=== PATIENT | male | born 1970 | race Caucasian/White ===

== ENCOUNTER → 2017-06-11 09:24 | Outpatient (CLI) | payer OTHER, SELFPAY ==
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
--- NOTE | 2017-06-11 09:40 | MRI_ITS ---
STUDY: MRA OF THE HEAD WITHOUT CONTRAST REASON FOR EXAM: Male, 47 years old. lt frontal headache, h/o prior stroke, concussion. TECHNIQUE: 3-D tfjs-yj-oiuzft (TOF) imaging was performed with MIPs. The study was performed unenhanced. COMPARISON: None. FINDINGS: Normal bilateral petrous carotid arteries. Normal right cavernous carotid artery with a normal supraclinoid bifurcation. Normal left cavernous carotid artery with a normal supraclinoid bifurcation. Normal right A1 segments of the anterior cerebral artery. Normal left A1 segments of the anterior cerebral artery. Normal intact anterior communicating artery (ACOM). Normal bilateral A2 segments of the anterior cerebral arteries. Normal right M1 and M2 segments of the middle cerebral arteries, with a normal M1 bifurcation. Normal left M1 and M2 segments of the middle cerebral arteries, with a normal M1 bifurcation. Normal bilateral vertebral arteries. Normal basilar artery with a normal basilar bifurcation. The visualized bilateral superior cerebellar (SCA) arteries are normal. Normal bilateral P1, P2 and visualized P3 segments of the posterior cerebral arteries. There is no demonstrated aneurysm of the [place]. There is no major vessel occlusion or hemodynamically significant stenosis. There is no demonstrated abnormality of the visualized brain. MRI/MRA Head ONLY without Contrast IMPRESSION: Normal MRA of the head Electronically Signed: Marlyn Scruggs MD at 8:12 EST Tel , Service support ,
--- NOTE | 2017-06-11 09:40 | MRI_ITS ---
STUDY: MRA NECK WITH AND WITHOUT CONTRAST REASON FOR EXAM: Male, 47 years old. lt frontal headache, h/o prior stroke, concussion. TECHNIQUE: 3-D mzfi-uj-yjeryg (TOF) imaging was performed in an 1.5 T MRI scanner. 10 ml of Gadavist was administered for the contrast enhanced images. COMPARISON: None. FINDINGS: RIGHT CAROTID ARTERIES: Normal right common carotid artery (CCA). There is mild atherosclerotic plaque formation with minimal narrowing of the right carotid bulb. There is mild atherosclerotic plaque formation of the origin of the right internal carotid artery with less than 50% cross sectional diameter stenosis. Normal visualized cervical portion of the right internal carotid artery. Normal origin of the right external carotid artery (ECA). LEFT CAROTID ARTERIES: Normal left common carotid artery (CCA). There is moderate atherosclerotic plaque formation with moderate narrowing of the carotid bulb. There is moderate atherosclerotic plaque formation of the origin of the left internal carotid artery with an estimated stenosis of 50-69% stenosis. Normal visualized cervical portion of the left internal carotid artery. Normal origin of the left external carotid artery (ECA). VERTEBRAL ARTERIES: Normal antegrade flow within the bilateral vertebral artery without a hemodynamically significant stenosis. MRI/MRA Neck WITH and W/O Contrast IMPRESSION: 50-69% stenosis of the left ICA. Further evaluation with sonography can be obtained. Electronically Signed: Marlyn Scruggs MD at 9:27 EST Tel , Service support ,
== END ==
PROVIDERS: Family Provider Family Medicine; PCP Family Medicine; Visit Provider Psychiatry & Neurology Neurology
DX: R51 Headache (principal); Z86.73 Personal history of transient ischemic attack (TIA), and cerebral infarction without residual deficits
CPT/HCPCS: 70544; 70549; 70551; A9585

== ENCOUNTER → 2017-06-16 20:37 | Outpatient (CLI) | payer OTHER, SELFPAY | PROVIDERS: Family Provider Family Medicine; PCP Family Medicine; Visit Provider Psychiatry & Neurology Neurology | DX: G47.30 Sleep apnea, unspecified (principal); R06.83 Snoring; Z86.73 Personal history of transient ischemic attack (TIA), and cerebral infarction without residual deficits | CPT/HCPCS: 95810 ==

== ENCOUNTER → 2017-06-24 09:00 | Outpatient (CLI) | payer OTHER, SELFPAY ==
--- NOTE | 2017-06-24 09:06 | ECHOCS_ITS ---
Reason For Study: CVA, arrhythmia Procedure This was a 2D Doppler, Color Flow transthoracic echocardiogram. The exam was of fair technical quality due to body habitus. The study was technically difficult. Contrast injection was performed. Exam performed in department. Left Ventricle Normal LV size. Left ventricular systolic function is normal. The estimated ejection fraction is 60 %. No evidence for diastolic dysfunction. No regional wall motion abnormalities noted. Right Ventricle Normal RV size. Normal systolic function. Atria Normal left atrium. Normal right atrium. No doppler evidence for ASD. Bubble contrast study negative for right to left interatrial shunt. Mitral Valve There is no mitral annular calcification. Normal mitral valve. Trivial mitral valve insufficiency. Tricuspid Valve Normal tricuspid valve. Trivial tricuspid valve insufficiency. Right ventricular systolic pressure estimated to be 23 mmHg. Aortic Valve Trisinus/trileaflet aortic valve. Normal aortic valve. Pulmonic Valve The pulmonic valve is not well visualized. Great Vessels Normal sized aortic root. Pericardium/Pleural No pericardial effusion. Medication 22 gauge I.V. with prn adaptor inserted into right arm. Performed a rapid injection of agitated mix of 9 cc saline and 1cc air to assess for atrial septal defect. Definity0.3ml given slow IV push to enhance endocardial definition. MMode/2D Measurements & Calculations LVIDd: 5.2 cm IVSd: 0.98 cm Ao root diam: 3.0 cm LVIDs: 3.5 cm LVPWd: 1.0 cm LA dimension: 4.5 cm RVDd: 3.8 cm FS: 32.6 % LAV(MOD-bp): 52.6 ml LA A4 area: 18.9 cm2 RA A4 area: 16.4 cm2 LAV(MOD-bp) Indexed: 22.5 ml/m2 LAV(MOD-sp2): 54.6 ml LAV(MOD-sp4): 50.6 ml Time Measurements MV dec time: 0.23 sec Doppler Measurements & Calculations MV E max jozef: 86.0 cm/sec Lat Peak E' Jozef: 14.2 cm/sec Med Peak E' Jozef: 9.3 cm/sec MV A max jozef: 69.9 cm/sec E/E' lat: 6.1 E/E' med: 9.3 MV E/A: 1.2 Ao V2 max: 138.9 cm/sec LV V1 max: 116.2 cm/sec PA V2 max: 108.0 cm/sec Ao max P.7 mmHg LV V1 max P.4 mmHg TR max jozef: 223.0 cm/sec TR max P.9 mmHg Interpretation Summary The study was technically difficult. Contrast injection was performed. Left ventricular systolic function is normal. The estimated ejection fraction is 60 %. Trivial mitral valve insufficiency. Trivial tricuspid valve insufficiency. Right ventricular systolic pressure estimated to be 23 mmHg. No evidence for diastolic dysfunction. Bubble contrast study negative for right to left interatrial shunt. Ordering Physician: Shaun Esteves Referring Physician: Shaun Esteves Performed By: Coby Abel, JO, RVT
== END ==
PROVIDERS: Family Provider Family Medicine; PCP Family Medicine; Visit Provider Psychiatry & Neurology Neurology
DX: I49.9 Cardiac arrhythmia, unspecified (principal); G47.30 Sleep apnea, unspecified; R51 Headache; Z86.73 Personal history of transient ischemic attack (TIA), and cerebral infarction without residual deficits
CPT/HCPCS: 93306; Q9957; A4216; C8929

== ENCOUNTER → 2017-09-09 20:00 | Outpatient (CLI) | payer OTHER, SELFPAY | PROVIDERS: Family Provider Family Medicine; PCP Family Medicine; Visit Provider Psychiatry & Neurology Neurology | DX: G47.33 Obstructive sleep apnea (adult) (pediatric) (principal) | CPT/HCPCS: 95811 ==

== ENCOUNTER 2017-09-24 09:00 | Outpatient (RCR) | payer OTHER, SELFPAY ==
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
--- NOTE | 2017-06-09 09:41 | HP.PTREVAL_ITS ---
Dionicio Schaeffer, It has been my pleasure to treat ERASMO GLOVER over the last 7 visits for vertigo. Please see the progress note below for an update on the physical therapy plan of care! Subjective: Overall, car rides are still not comfortable and make him nauseous. No improvement over three weeks ago. Trying to tolerate sunlight but still wants to be in dark room again. Home is less stressful than going out. Fatigue later in day seems to not tolerate grandson as much. Still describes mild BELTRAN in L frontal area. Overall BELTRAN not as severe as three weeks ago. No spinning lately. A little lightheaded when he gets up. Will have MRI tomorrow and see Dr. Schaeffer after that. See neuro July 04. Objective/Function: Pt is slow to answer questions and often times seems confused with even simple questions but is oriented to person place and day. VOR is still slow and labored but not creating dizzyness today. C/S AROM is WFL adn painfree but seems to put him in a slight trance for a quick second upon looking back down, no nystagmus with positional changes or c/o dizzyness. Has been intermittently nauseous during his time in PT but not today with seated VOR in plain background room. OVERALL NOT PROGRESSING I WOULD EXPECT WITH A VESTIBULAR DYSFUNCTION. RECOMMEND HE F/U WITH DOCTOR(WHICH HE WILL DO ON FRIDAY AFTER MRI) HE IS NOT IMPROVING WITH PT. Plan Plan: F/U WITH DOCTOR FOR NEXT MEDICAL STEP, WOULD BE HAPPY TO KEEP SEEING HIM FOR SLOW PROGRESSION OF VOR AND OR ATTEMPTING TO EX IF FOUND APPRORIATE BY PHYSICAN HOWEVER PATIENT PRESENTS LACKING THE EXPECTED IMPROVEMENT FOR VESTIBUALR DYSFUNCTION. PLEASE ADVISE. Pt to call after doctor visit Friday. Goals Goal 1:: abolish dizzy and BELTRAN 95% Goal Time Frame: 4-6 Weeks Goal Progress: Not Progressing Goal 2:: Plan to return to work Goal Time Frame: 4-6 Weeks Goal Progress: Not Progressing Goal 3:: back to normal activity including walking in bright lights and busy [employer]. Goal Time Frame: 1 Week Goal Progress: Not Progressing Goal 4:: VOR x 2 1 minute without symptoms. Goal Time Frame: 2-4 Weeks Goal Progress: Not improving. Anticipated Interventions Patient/Client Instruction: Educate patient on: Condition For the Purpose of:: To decrease pain Comment: adaptation progression. activity progression. For the Purpose of:: To decrease pain, To improve ability of physical actions for home/community/work/leisure Please do not hesitate to contact me at [phone] by phone or Fax: if you have questions or concerns regarding this new plan of care! Sincerely, Neri Locke, DPT, OC
--- NOTE | 2017-09-09 12:05 | HP.PTREVAL ---
Dionicio Schaeffer, It has been my pleasure to treat ERASMO GLOVER over the last 8 visits for vertigo. Please see the progress note below for an update on the physical therapy plan of care! Subjective: Saw neurologist who said to take it easy for a while. Was drinking bourbon for stress and has stopped that. Doctor thinks he is now ready for more therapy. Feels 75% better overall. Back to [place] on 06 of August. Up to neurologist that week. Was 60% at that time with tests of memory. Nausea is rare now and only with long trips in car. No spinning but gets quick whoa incidence with lifting heavy object. BELTRAN still persist. Gets a 6+/10 BELTRAN without pattern(maybe sunlight). Gets these daily. They last an houror 10 minutes. Maybe stress related. Walking at stores is OK but hasn't been overly busy. Head movements he still shies away from. Stays activei in garage and at home. Still can't work at [employer] business. No regular ex. No precuations from neurologist. Objective/Function: - B hallpike. Balance is good. Oculomotor is difficult but only symprtomatic with VOR x 2 30 sec with pressure above eyes. Pursuit and sacc ades are labored but no symptoms. - skew deviation. convergence is Ok. Plan Plan: Resume weekly PT for adaptation porgression of HEP. Speech script may be helpful Goals Goal 1:: abolish dizzy and BELTRAN 95% Goal Time Frame: 4-6 Weeks Goal Progress: Progressing Goal 2:: Plan to return to work Goal Time Frame: 4-6 Weeks Goal Progress: approp again. Goal 3:: back to normal activity including walking in bright lights and busy [employer]. Goal Time Frame: 1 Week Goal Progress: approp again. Goal 4:: VOR x 2 1 minute without symptoms. Goal Time Frame: 2-4 Weeks Goal Progress: NEW GOAL. Anticipated Interventions Patient/Client Instruction: Educate patient on: Condition For the Purpose of:: To decrease pain Comment: adaptation progression. activity progression. For the Purpose of:: To decrease pain, To improve ability of physical actions for home/community/work/leisure Please do not hesitate to contact me at [phone] by phone or if you have questions or concerns regarding this new plan of care! Sincerely, Neri Locke, DPT, OC
--- NOTE | 2017-09-24 09:32 | HP.PTDCSUM ---
HP - PT D/C Summary It has been my pleasure to treat ERASMO GLOVER under orders from Dionicio Schaeffer, for the diagnosis of vertigo for a total of 9 visit(s). Discharge Date: 09/24/17 Please see the following information for a summary of their discharge status. - Subjective Subjective: Got cpap and it dried out throat. Dizzyness is gone. BELTRAN daily and they last for a while usually over L eye. Exercises do not make him dizzy or create a BELTRAN. Focussing on thinking hard can bring on a BELTRAN. Cognitive work can bring on BELTRAN. No neck pain. Will see Dr. Powers next Friday for check up. Saw Dr. Deana gaitan in August but no f/u needed according to patient. - Pain BELTRAN Pain Intensity (Out of 10): 1 - Overall Improvement % Improvement: 75 - Objective Objective/Function: asymptomatic with seated VOR, VORx2. No dizzyness with any activity today or BELTRAN. PT SIGNIFICANTLY BETTER WITH DIZZYNESS AND NAUSEA BUT beltran PERSISTS AND WILL CHECK WITH DOCTOR NEXT WEEK. - Goals Goal 1:: abolish dizzy and BELTRAN 95% Goal Progress: dizzy, not BELTRAN Goal 2:: Plan to return to work Goal Progress: needs BELTRAN attention. Goal 3:: back to normal activity including walking in bright lights and busy [employer]. Goal Progress: Goal Met Goal 4:: VOR x 2 1 minute without symptoms. Goal Progress: Goal Met - Plan Plan: D/C, back to doctor next week who should address BELTRAN and consider speech therapy prescritpion. - D/C Information Discharge Comments: Dizzyness and nausea no longer a problem. BELTRAN persists and my concern is the meds that his neurologist prescribed need monitored. Also could benefit from speech therapy script for cognition deficits. If there are questions or concerns regarding this patient's physical therapy, please feel free to call me at [phone]. Thank you for the referral of this patient. Sincerely, Neri Locke, DAMARIST, OC
== END 2017-09-24 19:00 | disposition home or self-care (01) ==
LOC: PT 09:00
PROVIDERS: Family Provider Family Medicine; PCP Family Medicine; Visit Provider Family Medicine
DX: S06.0X9D Concussion with loss of consciousness of unspecified duration, subsequent encounter (principal)
CPT/HCPCS: 97110; 97161; 97530

== ENCOUNTER → 2018-03-17 15:16 | Outpatient (CLI) | payer SELFPAY ==
[2018-03-17 18:08] LABS: Hematocrit 44.1 % (40-54); Mean Corpuscular Hgb 33.1 pg (27.0-32.0); Mean Corpuscular Volume 97.4 fL (80-94); Mean Platelet Vol. 11.8 fl (6.2-12.0); Platelet Count 212 K/mm3 (150-450); RBC Distribution Width CV 12.8 % (11.6-14.6); RBC Distribution Width SD 44.8 fl (35.1-43.9); Red Blood Count 4.53 M/mm3 (4.6-6.2); White Blood Count 7.1 K/mm3 (4.4-11.0)
[2018-03-17 18:09] LABS: Scan Indicated on CBC? Y/N NO
[2018-03-17 18:17] LABS: Erythrocyte Sedimentation Rate 6 mm/hr (0-15)
[2018-03-17 18:21] LABS: Vitamin B12 347 pg/mL (211-911); Vitamin D,25 Hydroxy 9.5 ng/mL (29.95-100.01)
[2018-03-17 18:22] LABS: ALB/GLOB Ratio 1.1 RATIO (0.9-2.4); AST(SGOT) 40 U/L (15-37); Alanine Aminotransfer ALT/SGPT 75 U/L (16-61); Albumin, Serum 3.9 g/dL (3.2-5.0); Alkaline Phosphatase 115 U/L (45-117); Anion Gap 11 (5-15); BUN 14 mg/dL (7-18); BUN/Creat Ratio 15.7 RATIO (10-20); Calcium,Total 8.4 mg/dL (8.5-10.1); Chloride 104 mmol/L (98-107); Cholesterol 194 mg/dL (200); Creatinine, Serum 0.89 mg/dL (0.70-1.30); EST Glomerular Filtration Rate 97 mL/min (>60); Est Glom Filt Rate - Afr Amer 117 mL/min (>60); Globulin 3.6 g/dL (2.2-4.2); Glucose 96 mg/dL (74-106); High Density Lipoprotein 29 mg/dL; Magnesium 1.6 mg/dL (1.6-2.6); Potassium 3.5 mmol/L (3.5-5.1); Protein, Total 7.5 g/dL (6.4-8.2); Sodium Level 136 mmol/L (136-145); Thyroid Stim Hormone (TSH) 3.61 uIU/mL (0.358-3.74); Triglycerides 719 mg/dL
== END ==
PROVIDERS: Family Provider Family Medicine; PCP Family Medicine; Visit Provider Family Medicine
DX: I10 Essential (primary) hypertension (principal); G62.9 Polyneuropathy, unspecified; F10.10 Alcohol abuse, uncomplicated
CPT/HCPCS: 36415; 80053; 80061; 82306; 82607; 83735; 84443; 85027; 85652

== ENCOUNTER → 2018-05-18 09:14 | Outpatient (CLI) | payer SELFPAY ==
[2018-05-18 10:32] LABS: Vitamin B12 356 pg/mL (211-911); Vitamin D,25 Hydroxy 46.4 ng/mL (29.95-100.01)
== END ==
PROVIDERS: Family Provider Family Medicine; PCP Family Medicine; Visit Provider Family Medicine
DX: E53.8 Deficiency of other specified B group vitamins (principal); R79.89 Other specified abnormal findings of blood chemistry
CPT/HCPCS: 36415; 82306; 82607

== ENCOUNTER 2018-08-02 12:25 | Emergency (ER) | payer OTHER, SELFPAY ==
[2018-08-02 12:26] VITALS: BP 141/84; PULSE 69; RESP 14; TEMP 36.6; O2SAT 99; BMI 34.3
--- NOTE | 2018-08-02 13:00 | RAD_ITS ---
STUDY: X-RAY - RIGHT ANKLE REASON FOR EXAM: Male, 48 years old. Fall, right ankle pain TECHNIQUE: 3 view(s) of the ankle. COMPARISON: None. FINDINGS: Normal visualized distal tibia and fibula. Normal medial and lateral malleoli. Normal tibiotalar articulation and ankle mortise. There is a small calcaneal spur. The visualized subtalar, talonavicular, calcaneocuboid and tarsal articulations are normal. The soft tissue structures are unremarkable. RAD/Ankle min 3 Views IMPRESSION: No fracture or malalignment. Electronically Signed: Cristian Kendrick MD at 13:22 EDT , Service support ,
--- NOTE | 2018-08-02 13:00 | RAD_ITS ---
STUDY: X-RAY - RIGHT KNEE REASON FOR EXAM: Male, 48 years old. Fall, pain TECHNIQUE: 4 view(s) of the knee. COMPARISON: None. FINDINGS: Normal visualized distal femur. Normal visualized proximal tibia and fibula. Normal proximal tibiofibular articulation. Normal medial femorotibial compartment. Normal lateral femorotibial compartment. Normal patellofemoral articulation. There is no demonstrated joint effusion. The soft tissue structures are unremarkable. RAD/Knee 4 or More Views IMPRESSION: 1. No fracture or malalignment. Electronically Signed: Cristian Kendrick MD at 13:22 EDT , Service support ,
--- NOTE | 2018-08-02 13:00 | RAD_ITS ---
STUDY: X-RAY - RIGHT TIBIA AND FIBULA REASON FOR EXAM: Male, 48 years old. Fall, pain TECHNIQUE: 3 view(s) of the tibia and fibula were obtained. COMPARISON: None. FINDINGS: There is medial bowing of the tibia is more likely sequela of prior injury or congenital variation rather than related to acute injury. Normal visualized fibula. The soft tissue structures are unremarkable. RAD/Tibia & Fibula 2 Views IMPRESSION: No fracture or malalignment demonstrated. Electronically Signed: Cristian Kendrick MD at 13:23 EDT , Service support ,
--- NOTE | 2018-08-02 13:41 | ED.VIS.LOWEX ---
History of Present Illness Chief Complaint: Lower Extremity Injury Informant: Patient Occurred: Days - 2 Mechanism/Context: Fall Context: Sudden Onset - slipped and fell Timing: Continuous Quality of Pain: Aching Current Severity: Mild Maximum Severity: Severe Relieved by: wearing orthopaedic boot Associated Symptoms: Negative for: Parasthesia, Weakness, Loss of Funtion Narrative: 2 days ago patient was in his sandals on a wooden patio and accidentally stepped in a puddle of water causing him to slipped, twisting his right ankle and knee, he describes what may have been a varus and internal rotation type of injury, he has been having lateral right ankle pain all the way up to the lateral aspect of his knee ever since. He has a tall orthopedic boot that he has been wearing since then, and presents today to have it evaluated. - Past Medical History (1) Benign essential HTN Status: Chronic (2) Gastroesophageal reflux disease Status: Chronic Past Medical History - Allergies and Home Meds Allergies/Adverse Reactions: Allergies Unable to Assess Allergy (Verified 08/02/18 12:28) Primary Care Physician: Layton Schaeffer MD [Primary Care Provider] - Surgical History: arhtroscopy at the age 15. Lives: Spouse/ Significant Other Smoking Status: Current every day smoker Review of Systems Musculoskeletal: Reports: Swelling - Right ankle, Extremity Pain. Denies: Neck pain, Back pain Neurological: Denies: Headache, Weakness, Numbness Physical Exam Vital Signs/Narrative: Vital Signs Temp Pulse Resp BP Pulse Ox 08/02/18 12:26 98 F 69 14 141/84 H 99 Inital Vital Signs reviewed: Yes - Extremity Exam Right Knee: - - Tender at lateral aspect of distal femur and knee joint and fibular head. All ligaments intact and stable with no significant pain or laxity on stressing including negative Linda. No effusion. Tender just lateral to the patella anteriorly.. Negative for: Deformity, Limited ROM Right Tib fib: - - Tender throughout the distribution of the fibula. No deformities.. Negative for: Deformity Right Ankle: Limited ROM, - - Tender and swollen at lateral malleolus. No tenderness at the medial malleolus, base of the fifth metatarsal, or elsewhere in the foot.. Negative for: Deformity General: Well nourished, Well developed Head: Normocephalic, Atraumatic Skin: Normal color, No rash, No Trauma - No skin lesions or lacerations Neurological: Alert, Oriented x3, Cranial nerves II-XII grossly intact, Normal Strength, Normal Sensation Psychological: Normal affect Diagnostic/Tx/Re-eval Clinical Impression(s) from Imaging Studies Ankle X-Ray 08/02/18 13:00 IMPRESSION: No fracture or malalignment. Electronically Signed: Cristian Kendrick MD at 13:22 EDT , Service support , Knee X-Ray 08/02/18 13:00 IMPRESSION: 1. No fracture or malalignment. Electronically Signed: Cristian Kendrick MD at 13:22 EDT , Service support , Tibia/Fibula X-Ray 08/02/18 13:00 IMPRESSION: No fracture or malalignment demonstrated. Electronically Signed: Cristian Kendrick MD at 13:23 EDT , Service support , - Medical Decision Making No x-ray evidence of bony injury or [place] injury. Likely sprain. Advised to follow-up with his doctor if he has pain persistent and not improving after 2 weeks. I think he is fine to continue using his tall boot, making sure to come out of it and flex his calf periodically. Ice and ibuprofen also advised as needed. He is comfortable with that plan. ED Disposition - Plan for ED Patient: Disposition: Home or Assisted Living Diagnosis: Sprain of ankle, right, Right knee sprain Instructions: ED Sprain Ankle W X Ray, ED Sprain Knee Referrals: Layton Schaeffer MD [Primary Care Provider] - 10-14 Days if not better Additional Instructions: May continue using boot and weightbearing as tolerated, ice to affected areas as needed, ibuprofen also as needed.
--- NOTE | 2018-08-02 13:49 | ED.DCSUM_ITS ---
History of Present Illness Chief Complaint: Lower Extremity Injury Informant: Patient Occurred: Days - 2 Mechanism/Context: Fall Context: Sudden Onset - slipped and fell Timing: Continuous Quality of Pain: Aching Current Severity: Mild Maximum Severity: Severe Relieved by: wearing orthopaedic boot Associated Symptoms: Negative for: Parasthesia, Weakness, Loss of Funtion Narrative: 2 days ago patient was in his sandals on a wooden patio and accidentally stepped in a puddle of water causing him to slipped, twisting his right ankle and knee, he describes what may have been a varus and internal rotation type of injury, he has been having lateral right ankle pain all the way up to the lateral aspect of his knee ever since. He has a tall orthopedic boot that he has been wearing since then, and presents today to have it evaluated. - Past Medical History (1) Benign essential HTN Status: Chronic (2) Gastroesophageal reflux disease Status: Chronic Past Medical History - Allergies and Home Meds Allergies/Adverse Reactions: Allergies Unable to Assess Allergy (Verified 08/02/18 12:28) Primary Care Physician: Layton Schaeffer MD [Primary Care Provider] - Surgical History: arhtroscopy at the age 15. Lives: Spouse/ Significant Other Smoking Status: Current every day smoker Review of Systems Musculoskeletal: Reports: Swelling - Right ankle, Extremity Pain. Denies: Neck pain, Back pain Neurological: Denies: Headache, Weakness, Numbness Physical Exam Vital Signs/Narrative: Vital Signs Temp Pulse Resp BP Pulse Ox 08/02/18 12:26 98 F 69 14 141/84 H 99 Inital Vital Signs reviewed: Yes - Extremity Exam Right Knee: - - Tender at lateral aspect of distal femur and knee joint and fibular head. All ligaments intact and stable with no significant pain or laxity on stressing including negative Linda. No effusion. Tender just lateral to the patella anteriorly.. Negative for: Deformity, Limited ROM Right Tib fib: - - Tender throughout the distribution of the fibula. No deformities.. Negative for: Deformity Right Ankle: Limited ROM, - - Tender and swollen at lateral malleolus. No tenderness at the medial malleolus, base of the fifth metatarsal, or elsewhere in the foot.. Negative for: Deformity General: Well nourished, Well developed Head: Normocephalic, Atraumatic Skin: Normal color, No rash, No Trauma - No skin lesions or lacerations Neurological: Alert, Oriented x3, Cranial nerves II-XII grossly intact, Normal Strength, Normal Sensation Psychological: Normal affect Diagnostic/Tx/Re-eval Clinical Impression(s) from Imaging Studies Ankle X-Ray 08/02/18 13:00 IMPRESSION: No fracture or malalignment. Electronically Signed: Cristian Kendrick MD at 13:22 EDT , Service support , Knee X-Ray 08/02/18 13:00 IMPRESSION: 1. No fracture or malalignment. Electronically Signed: Cristian Kendrick MD at 13:22 EDT , Service support , Tibia/Fibula X-Ray 08/02/18 13:00 IMPRESSION: No fracture or malalignment demonstrated. Electronically Signed: Cristian Kendrick MD at 13:23 EDT , Service support , - Medical Decision Making No x-ray evidence of bony injury or [place] injury. Likely sprain. Advised to follow-up with his doctor if he has pain persistent and not improving after 2 weeks. I think he is fine to continue using his tall boot, making sure to come out of it and flex his calf periodically. Ice and ibuprofen also advised as needed. He is comfortable with that plan. ED Disposition - Plan for ED Patient: Disposition: Home or Assisted Living Diagnosis: Sprain of ankle, right, Right knee sprain Instructions: ED Sprain Ankle W X Ray, ED Sprain Knee Referrals: Layton Schaeffer MD [Primary Care Provider] - 10-14 Days if not better Additional Instructions: May continue using boot and weightbearing as tolerated, ice to affected areas as needed, ibuprofen also as needed.
== END 2018-08-02 14:22 | disposition home or self-care (01) ==
PROVIDERS: Emergency Provider Emergency Medicine; Family Provider Family Medicine; PCP Family Medicine
DX: S93.401A Sprain of unspecified ligament of right ankle, initial encounter (principal); S83.91XA Sprain of unspecified site of right knee, initial encounter; W01.0XXA Fall on same level from slipping, tripping and stumbling without subsequent striking against object, initial encounter; Y93.9 Activity, unspecified; Y92.9 Unspecified place or not applicable; I10 Essential (primary) hypertension; F17.200 Nicotine dependence, unspecified, uncomplicated; Z79.82 Long term (current) use of aspirin; Z79.899 Other long term (current) drug therapy
CPT/HCPCS: 73564; 73590; 73610; 99282

== ENCOUNTER → 2019-03-02 08:19 | Outpatient (CLI) | payer SELFPAY ==
[2019-03-02 10:10] LABS: Hemoglobin 15.2 g/dL (13.0-16.5); Mean Corp Hgb Conc 34.5 g/dL (32-36); Mean Corpuscular Hgb 33.1 pg (27.0-32.0); Mean Corpuscular Volume 95.9 fL (80-94); Mean Platelet Vol. 12.5 fl (6.2-12.0); Platelet Count 211 K/mm3 (150-450); RBC Distribution Width CV 12.6 % (11.6-14.6); RBC Distribution Width SD 44.7 fl (35.1-43.9); Red Blood Count 4.59 M/mm3 (4.6-6.2); White Blood Count 7.1 K/mm3 (4.4-11.0)
[2019-03-02 10:28] LABS: Vitamin B12 482 pg/mL (211-911)
[2019-03-02 10:36] LABS: ALB/GLOB Ratio 1.1 RATIO (0.9-2.4); AST(SGOT) 50 U/L (15-37); Alanine Aminotransfer ALT/SGPT 90 U/L (16-61); Albumin, Serum 3.8 g/dL (3.2-5.0); Alkaline Phosphatase 101 U/L (45-117); Anion Gap 8 (5-15); BUN 16 mg/dL (7-18); BUN/Creat Ratio 18.6 RATIO (10-20); Calcium,Total 8.9 mg/dL (8.5-10.1); Chloride 108 mmol/L (98-107); Creatinine, Serum 0.86 mg/dL (0.70-1.30); EST Glomerular Filtration Rate 100 mL/min (>60); Est Glom Filt Rate - Afr Amer 121 mL/min (>60); Globulin 3.6 g/dL (2.2-4.2); Glucose 115 mg/dL (74-106); Potassium 3.8 mmol/L (3.5-5.1); Protein, Total 7.4 g/dL (6.4-8.2); Sodium Level 141 mmol/L (136-145); Thyroid Stim Hormone (TSH) 2.87 uIU/mL (0.358-3.74)
== END ==
PROVIDERS: Family Provider Family Medicine; PCP Family Medicine; Visit Provider Family Medicine
DX: E53.8 Deficiency of other specified B group vitamins (principal); F10.10 Alcohol abuse, uncomplicated; F32.9 Major depressive disorder, single episode, unspecified
CPT/HCPCS: 36415; 80053; 82607; 84443; 85027

== ENCOUNTER → 2019-12-17 09:23 | Outpatient (CLI) | payer OTHER, MEDICARE, SELFPAY ==
[2019-12-17 12:46] LABS: Erythrocyte Sedimentation Rate 8 mm/hr (0-20)
[2019-12-17 12:48] LABS: ALB/GLOB Ratio 1.1 RATIO (0.9-2.4); AST(SGOT) 18 U/L (15-37); Alanine Aminotransfer ALT/SGPT 72 U/L (16-61); Albumin, Serum 3.9 g/dL (3.2-5.0); Alkaline Phosphatase 110 U/L (45-117); Anion Gap 10 (5-15); BUN 12 mg/dL (7-18); BUN/Creat Ratio 13.1 RATIO (10-20); CRP < 2.90 mg/L (0.0-3.0); Calcium,Total 9.1 mg/dL (8.5-10.1); Chloride 102 mmol/L (98-107); Cholesterol 195 mg/dL (200); Creatinine, Serum 0.92 mg/dL (0.70-1.30); EST Glomerular Filtration Rate 93 mL/min (>60); Est Glom Filt Rate - Afr Amer 113 mL/min (>60); Globulin 3.6 g/dL (2.2-4.2); Glucose 249 mg/dL (74-106); High Density Lipoprotein 20 mg/dL; Potassium 3.9 mmol/L (3.5-5.1); Protein, Total 7.5 g/dL (6.4-8.2); Rheumatoid Factor < 10.0 IU/mL (<15); Sodium Level 136 mmol/L (136-145); Triglycerides 713 mg/dL
[2019-12-17 16:31] LABS: Hemoglobin A1c 8.2 % (3.8-5.6)
[2019-12-20 15:53] LABS: ANTINUCLEAR ANTIBODIES DIRECT Negative (Negative)
== END ==
PROVIDERS: Family Medicine; PCP Family Medicine; Referring Provider Family Medicine; Visit Provider Family Medicine
DX: R73.09 Other abnormal glucose (principal); E55.9 Vitamin D deficiency, unspecified; M25.50 Pain in unspecified joint; I10 Essential (primary) hypertension; E78.5 Hyperlipidemia, unspecified
CPT/HCPCS: 36415; 80053; 80061; 82306; 83036; 85652; 86038; 86140; 86431

== ENCOUNTER 2020-06-22 14:31 | Observation (INO) | payer OTHER, MEDICARE, SELFPAY ==
[2020-06-22 14:34] VITALS: BP 129/73; PULSE 91; RESP 16; TEMP 36.9; O2SAT 98; BMI 35.3
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
[2020-06-22 15:23] VITALS: BMI 35.3
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
[2020-06-22 15:33] VITALS: BP 136/81; PULSE 91; RESP 16; TEMP 36.7; O2SAT 99
[2020-06-22 15:37] VITALS: BP 136/81; PULSE 91; RESP 16; TEMP 36.7; O2SAT 99
--- NOTE | 2020-06-22 15:40 | CM.ED ---
SOCIAL WORK Reason for Consult: Substance abuse-requesting detox from alcohol Patient presents to [facility] ER requesting detox from alcohol. Patient states drank 4 shots before coming to ER. Patient reports consumes about 10-12 shots of bourbon/day. Patient states prior history of TBI and drinking has become a coping skill. Call to Kajal with [facility] to update on patient's admission to PAT. Kajal to be in tomorrow to complete assessment. Plan: Admit to PAT Sánchez, SOFTWARE TEST SPECIALIST, SOFTBALL PLAYER
[2020-06-22 15:49] LABS: Absolute Lymphocyte Count 3.12 X10^3/uL (0.83-4.51); Absolute Neutrophil Count 3.7 X10^3/uL (2.0-7.7); Basophil# 0.05 X10^3/uL; Basophil% 0.7 % (0-1); Eosinophil# 0.17 X10^3/uL; Eosinophils% 2.2 % (0-5); Hematocrit 40.2 % (40-54); Hemoglobin 14.1 g/dL (13.0-16.5); Lymphocyte # 3.12 X10^3/ul (4.0); Lymphocyte % 40.8 % (19-41); Mean Corp Hgb Conc 35.1 g/dL (32-36); Mean Corpuscular Hgb 32.9 pg (27.0-32.0); Mean Corpuscular Volume 93.7 fL (80-94); Mean Platelet Vol. 11.1 fl (6.2-12.0); Monocyte# 0.56 X10^3/uL; Monocyte% 7.3 % (0-10); NRBC Flagged by Analyzer 0 % (0-5); Neutrophil # 3.72 X10^3/uL (2.7-7.7); Neutrophil % 48.7 % (47-70); Platelet Count 281 K/mm3 (150-450); RBC Distribution Width CV 12.4 % (11.6-14.6); RBC Distribution Width SD 42.8 fl (35.1-43.9); Red Blood Count 4.29 M/mm3 (4.6-6.2); White Blood Count 7.6 K/mm3 (4.4-11.0)
[2020-06-22 16:00] LABS: ALB/GLOB Ratio 1.1 RATIO (0.9-2.4); AST(SGOT) 43 U/L (15-37); Alanine Aminotransfer ALT/SGPT 78 U/L (16-61); Albumin, Serum 3.9 g/dL (3.2-5.0); Alkaline Phosphatase 117 U/L (45-117); Anion Gap 9 (5-15); BUN 11 mg/dL (7-18); BUN/Creat Ratio 10.2 RATIO (10-20); Calcium,Total 8.8 mg/dL (8.5-10.1); Chloride 103 mmol/L (98-107); Creatinine, Serum 1.08 mg/dL (0.70-1.30); EST Glomerular Filtration Rate 77 mL/min (>60); Est Glom Filt Rate - Afr Amer 93 mL/min (>60); Estimated Creatinine Clearance 88.82 ml/min; Globulin 3.4 g/dL (2.2-4.2); Glucose 165 mg/dL (74-106); Potassium 3.1 mmol/L (3.5-5.1); Protein, Total 7.3 g/dL (6.4-8.2); Sodium Level 136 mmol/L (136-145)
[2020-06-22 16:11] VITALS: BMI 34.5
[2020-06-22 16:16] LABS: Amphetamine Urine VISTA NEGATIVE (<1000 ng/mL); Barbiturate Urine VISTA NEGATIVE (< 200 ng/mL); Benzodiazepine Urine VISTA NEGATIVE (< 200 ng/mL); Cocaine Urine VISTA NEGATIVE (< 300 ng/mL); Ecstacy Urine VISTA POSITIVE (< 500 ng/mL); Methadone Urine VISTA NEGATIVE (< 300 ng/mL); PCP Urine VISTA NEGATIVE (< 25 ng/mL); THC Urine VISTA NEGATIVE (< 50 ng/mL); Vista UDS pH Range 5
[2020-06-22 16:17] VITALS: BP 123/74; PULSE 92; RESP 16; TEMP 36.8; O2SAT 99
[2020-06-22 16:18] VITALS: BP 123/74; PULSE 92; RESP 16; TEMP 36.8; O2SAT 99
[2020-06-22] MEDS: Phenobarbital 32.4 MG Tablet PO ×2 (16:36→20:35)
[2020-06-22] MEDS: metFORMIN HCl 500 MG Tablet PO (16:58)
[2020-06-22] MEDS: Potassium Chloride Oral Tablet 20 MEQ 40 MEQ PO (16:58)
[2020-06-22 20:22] VITALS: BP 129/81; PULSE 82; RESP 16; TEMP 36.8; O2SAT 99
[2020-06-22] MEDS: Topiramate 50 MG Tablet PO (21:57)
[2020-06-22] MEDS: Pantoprazole Sodium 20 MG Tablet PO (21:57)
[2020-06-22] MEDS: Atorvastatin Calcium 40 MG Tablet PO (21:57)
[2020-06-22] MEDS: buPROPion (SR) 150 MG Tablet.SA PO (21:57)
[2020-06-22] MEDS: busPIRone 5 MG Tablet 10 MG PO (21:58)
[2020-06-23 01:01] VITALS: BP 143/96; PULSE 72; RESP 18; TEMP 36.6; O2SAT 96
[2020-06-23] MEDS: Phenobarbital 32.4 MG Tablet PO ×6 (01:06→20:42)
[2020-06-23 05:26] VITALS: BP 143/86; PULSE 87; RESP 18; TEMP 36.7; O2SAT 100
[2020-06-23] MEDS: busPIRone 5 MG Tablet 10 MG PO ×2 (05:34→20:42)
[2020-06-23] MEDS: Thiamine Hydrochloride 100 MG Tablet PO (09:08)
[2020-06-23] MEDS: buPROPion (SR) 150 MG Tablet.SA PO ×2 (09:08→20:43)
[2020-06-23] MEDS: amLODIPine 10 MG Tablet PO (09:08)
[2020-06-23] MEDS: metFORMIN HCl 500 MG Tablet PO ×2 (09:09→17:27)
[2020-06-23] MEDS: DULoxetine Hcl 60 MG Capsule PO (09:09)
[2020-06-23] MEDS: Pantoprazole Sodium 20 MG Tablet PO ×2 (09:09→20:43)
[2020-06-23] MEDS: hydroCHLOROthiazide 25 MG Tablet PO (09:10)
[2020-06-23] MEDS: Aspirin 81 MG TAB.CHEW PO (09:10)
[2020-06-23] MEDS: Losartan Potassium 100 MG Tablet PO (09:11)
[2020-06-23] MEDS: Folic Acid 1 MG Tablet PO (09:11)
[2020-06-23] MEDS: Topiramate 50 MG Tablet PO ×2 (09:14→20:43)
[2020-06-23 10:00] VITALS: BP 158/86; PULSE 76; RESP 18; TEMP 36.6; O2SAT 99
--- NOTE | 2020-06-23 10:54 | PCM.PN.HOSP ---
Patient Problems: Active and Suspected Problems Alcohol dependence (Acute) Subjective: Doing well, no issues overnight. Denies any significant withdrawal symptoms. JAIRO was a 4 this morning at 920 Vitals/I&O's: Vital Signs Temp Pulse Resp BP Pulse Ox 98 F 76 18 158/86 H 99 06/23/20 10:00 06/23/20 10:00 06/23/20 10:00 06/23/20 10:00 06/23/20 10:00 Oxygen Delivery Method Room Air Weight: 255 lb Body Mass Index (BMI) 34.5 Intake and Output for Last 24 Hours 06/21/20 06/22/20 06/23/20 23:59 23:59 23:59 Intake Total 650 / 650 700 / 700 Balance 650 / 650 700 / 700 General: Alert, Oriented x3, Cooperative, No apparent distress HEENT: Atraumatic, PERRLA, EOMI, Normocephalic Oral: Moist Mucosa Neck: Supple, No JVD Lungs: Clear to auscultation, Normal air movement, No rhonchi, No wheeze, No rales Cardiovascular: Regular rate, Regular Rhythm, Normal S1, Normal S2, No murmurs Abdomen: Soft, Non Tender, Non-Distended, No Hepato-splenomegaly Extremities: No edema, Capillary Refill Less than 3 Seconds Skin: No rashes, No breakdown Neurological: Neuro grossly intact, Sensory exam intact to light touch and pain Psych/Mental Status: Normal Affect, Appropriate Laboratory Results 06/22/20 15:20: WBC 7.6, RBC 4.29 L, Hgb 14.1, Hct 40.2, MCV 93.7, MCH 32.9 H, MCHC 35.1, RDW Std Deviation 42.8, RDW Coeff of Filippo 12.4, Plt Count 281, MPV 11.1, Immature Gran % (Auto) 0.300, Neut % (Auto) 48.7, Lymph % (Auto) 40.8, [place] % (Auto) 7.3, Eos % (Auto) 2.2, Baso % (Auto) 0.7, Absolute Neuts (auto) 3.7, Absolute Lymphs (auto) 3.12, Nucleated RBC % 0 06/22/20 15:20: Sodium 136, Potassium 3.1 L, Chloride 103, Carbon Dioxide 24.0, Anion Gap 9, BUN 11, Creatinine 1.08, Estim Creat Clear Calc 88.82, Est GFR (MDRD) Af Amer 93, Est GFR (MDRD) Non-Af 77, BUN/Creatinine Ratio 10.2, Glucose 165 H, Calcium 8.8, Total Bilirubin 0.20, AST 43 H, ALT 78 H, Alkaline Phosphatase 117, Total Protein 7.3, Albumin 3.9, Globulin 3.4, Albumin/Globulin Ratio 1.1 06/22/20 15:20: Ethyl Alcohol 110.0 06/22/20 15:50: Urine Opiates Screen NEGATIVE, Urine Methadone Screen NEGATIVE, Ur Barbiturates Screen NEGATIVE, Ur Phencyclidine Scrn NEGATIVE, Ur Amphetamines Screen NEGATIVE, U Methamphetamin-MDMA POSITIVE H, U Benzodiazepines Scrn NEGATIVE, Urine Cocaine Screen NEGATIVE, U Cannabinoids Screen NEGATIVE, Ur Drug Screen Comment Current Medications Amlodipine Besylate (Amlodipine 10 Mg Tablet) 10 mg PO DAILY [facility] Last Admin: 06/23/20 09:08 Dose: 10 mg Documented by: Aspirin (Aspirin 81 Mg Tab.Chew) 81 mg PO DAILY@0800 [facility] Last Admin: 06/23/20 09:10 Dose: 81 mg Documented by: Atorvastatin Calcium (Atorvastatin Calcium 40 Mg Tablet) 40 mg PO QHS [facility] Last Admin: 06/22/20 21:57 Dose: 40 mg Documented by: Bupropion HCl (Bupropion (Sr) 150 Mg Tablet.Sa) 150 mg PO BID [facility] Last Admin: 06/23/20 09:08 Dose: 150 mg Documented by: Buspirone HCl (Buspirone 15 Mg Tablet) 30 mg PO DAILY [facility] Buspirone HCl (Buspirone 5 Mg Tablet) 10 mg PO TID [facility] Last Admin: 06/23/20 05:34 Dose: 10 mg Documented by: Dicyclomine HCl (Dicyclomine 10 Mg Capsule) 20 mg PO Q6H PRN PRN PRN Reason: abdominal discomfort Duloxetine HCl (Duloxetine Hcl 60 Mg Capsule) 60 mg PO DAILY [facility] Last Admin: 06/23/20 09:09 Dose: 60 mg Documented by: Folic Acid (Folic Acid 1 Mg Tablet) 1 mg PO DAILY@0800 [facility] Last Admin: 06/23/20 09:11 Dose: 1 mg Documented by: Gabapentin (Gabapentin 300 Mg Capsule) 300 mg PO Q8H PRN PRN PRN Reason: moderate to severe anxiety Hydrochlorothiazide (Hydrochlorothiazide 25 Mg Tablet) 25 mg PO DAILY [facility] Last Admin: 06/23/20 09:10 Dose: 25 mg Documented by: Hydroxyzine Pamoate (Hydroxyzine Jessa 25 Mg Capsule) 50 mg PO Q4H PRN PRN PRN Reason: mild anxiety Loperamide HCl (Loperamide 2 Mg Capsule) 2 mg PO Q4H PRN PRN PRN Reason: LOOSE STOOLS Lorazepam (Lorazepam 1 Mg Tablet) 1 mg PO BID PRN PRN Reason: ANXIETY Losartan Potassium (Losartan Potassium 100 Mg Tablet) 100 mg PO DAILY [facility] Last Admin: 06/23/20 09:11 Dose: 100 mg Documented by: Metformin HCl (Metformin Hcl 500 Mg Tablet) [facility] Last Admin: 06/23/20 09:09 Dose: 500 mg Documented by: Nicotine (Nicotine 21 Mg Patch) 21 mg TD DAILY [facility] Last Admin: 06/23/20 09:12 Dose: 21 mg Documented by: Ondansetron HCl (Ondansetron 8 Mg Tablet) 8 mg PO Q8H PRN PRN PRN Reason: NAUSEA Pantoprazole Sodium (Pantoprazole Sodium 20 Mg Tablet) 20 mg PO BID [facility] Last Admin: 06/23/20 09:09 Dose: 20 mg Documented by: Phenobarbital (Phenobarbital 32.4 Mg Tablet) 97.2 mg PO Q4H [facility]; Taper Stop: 06/27/20 00:59 Last Admin: 06/23/20 08:55 Dose: 97.2 mg Documented by: Sodium Chloride (0.9% Saline Lock 10 Ml Syringe) 10 - 40 ml IV UD PRN PRN Reason: SALINE FLUSH Thiamine HCl (Thiamine Hydrochloride 100 Mg Tablet) [facility] Last Admin: 06/23/20 09:08 Dose: 100 mg Documented by: Topiramate (Topiramate 50 Mg Tablet) 50 mg PO BID [facility] Last Admin: 06/23/20 09:14 Dose: 50 mg Documented by: Trazodone HCl (Trazodone 100 Mg Tablet) 100 mg PO QHS PRN PRN PRN Reason: INSOMNIA STROKE Vital Signs/Narrative: Vital Signs Temp Pulse Resp BP Pulse Ox 06/23/20 10:00 98 F 76 18 158/86 H 99 Medical Necessity - Tobacco Use Smoking Status: Current every day smoker Tobacco Use: Secondhand, Cigarettes Assessment/Plan All Active Problems Alcohol dependence (Acute) 1. Alcohol detox/anxiety/depression/history of TBI -We will continue with the alcohol withdrawal protocol -Continue with Wellbutrin, BuSpar, Cymbalta, Topamax -Understands that he will talk with 180 and may need either inpatient rehab or outpatient management. 2. HTN/HLD -Blood pressures are currently stable -Continue with his home Norvasc, aspirin, hydrochlorothiazide, losartan 3. DM 2 -Stable -Continue with his home metformin 4. GERD -Stable -Continue with PPI DVT: Low risk Inpatient E&M: 18395 Subs Hosp L2
--- NOTE | 2020-06-23 12:44 | ADDICTION ---
This racebook writer met with PT in his room to complete ASAM, AUDIT and MSE assessments and to process d/c plan. D/c plan not completed due to PT being encouraged to review his options as this is his first time seeking treatment. Assessments completed and faxed to [facility].
[2020-06-23 13:18] VITALS: BP 136/88; PULSE 79; RESP 18; TEMP 36.5; O2SAT 96
--- NOTE | 2020-06-23 14:31 | CASEMGMT ---
Social Work Note SW received call from Nicol with [facility] requesting pt remain at [facility] until Friday when pt can discharge directly to [facility] and Nicol can meet with pt and pt's together to figure out discharge plans. Nicol requests pt be discharged by 10:30-11:00am so she can transport pt to [facility]. Physician updated. Plan: [facility] Friday Aiyana PENALOZA, CAREER DEVELOPMENT FACILITATOR
--- NOTE | 2020-06-23 16:54 | NURSING ---
reviewed and agree with documentation by DERECK Barcenas
[2020-06-23 17:22] VITALS: BP 123/80; PULSE 74; RESP 18; TEMP 36.9; O2SAT 99
[2020-06-23] MEDS: 0.9% Saline Lock 10 ML Syringe IV (17:27)
[2020-06-23] MEDS: Atorvastatin Calcium 40 MG Tablet PO (20:43)
[2020-06-23 20:47] VITALS: BP 126/81; PULSE 69; RESP 16; TEMP 36.6; O2SAT 95
[2020-06-24] MEDS: Phenobarbital 32.4 MG Tablet PO ×6 (00:57→21:59)
[2020-06-24 01:57] VITALS: BP 123/73; PULSE 61; RESP 16; TEMP 36.1; O2SAT 97
[2020-06-24 07:57] VITALS: BP 130/84; PULSE 58; RESP 18; TEMP 37.1; O2SAT 98
--- NOTE | 2020-06-24 08:17 | PN_ITS ---
Patient Problems: Active and Suspected Problems Alcohol dependence (Acute) Reason for Visit: Follow-up on acute alcohol withdrawal. Subjective: Patient was seen and examined. Denied any new complaints. Feels improved. Objective: Physical exam: General: Alert, Oriented x3, Cooperative, No apparent distress HEENT: Atraumatic, PERRLA, EOMI, Normocephalic Oral: Moist Mucosa Neck: Supple, No JVD Lungs: Clear to auscultation, Normal air movement, No rhonchi, No wheeze, No rales Cardiovascular: Regular rate, Regular Rhythm, Normal S1, Normal S2, No murmurs Abdomen: Soft, Non Tender, Non-Distended, No Hepato-splenomegaly Extremities: No edema, Capillary Refill Less than 3 Seconds Skin: No rashes, No breakdown Neurological: Neuro grossly intact, Sensory exam intact to light touch and pain Psych/Mental Status: Normal Affect, Appropriate Vitals/I&O's: Vital Signs Temp Pulse Resp BP Pulse Ox 97 F L 61 16 123/73 H 97 06/24/20 01:57 06/24/20 01:57 06/24/20 01:57 06/24/20 01:57 06/24/20 01:57 Oxygen Delivery Method Room Air Weight: 115.666 kg Body Mass Index (BMI) 34.5 Intake and Output for Last 24 Hours 06/22/20 06/23/20 06/24/20 23:59 23:59 23:59 Intake Total 650 / 650 1999 Balance 650 / 650 1999 Current Medications Amlodipine Besylate (Amlodipine 10 Mg Tablet) 10 mg PO DAILY [facility] Last Admin: 06/23/20 09:08 Dose: 10 mg Documented by: Aspirin (Aspirin 81 Mg Tab.Chew) 81 mg PO DAILY@0800 [facility] Last Admin: 06/23/20 09:10 Dose: 81 mg Documented by: Atorvastatin Calcium (Atorvastatin Calcium 40 Mg Tablet) 40 mg PO QHS [facility] Last Admin: 06/23/20 20:43 Dose: 40 mg Documented by: Bupropion HCl (Bupropion (Sr) 150 Mg Tablet.Sa) 150 mg PO BID [facility] Last Admin: 06/23/20 20:43 Dose: 150 mg Documented by: Buspirone HCl (Buspirone 5 Mg Tablet) 10 mg PO QHS [facility] Last Admin: 06/23/20 20:42 Dose: 10 mg Documented by: Buspirone HCl (Buspirone 5 Mg Tablet) 20 mg PO DAILY [facility] Dicyclomine HCl (Dicyclomine 10 Mg Capsule) 20 mg PO Q6H PRN PRN PRN Reason: abdominal discomfort Duloxetine HCl (Duloxetine Hcl 60 Mg Capsule) 60 mg PO DAILY [facility] Last Admin: 06/23/20 09:09 Dose: 60 mg Documented by: Folic Acid (Folic Acid 1 Mg Tablet) 1 mg PO DAILY@0800 [facility] Last Admin: 06/23/20 09:11 Dose: 1 mg Documented by: Gabapentin (Gabapentin 300 Mg Capsule) 300 mg PO Q8H PRN PRN PRN Reason: moderate to severe anxiety Hydrochlorothiazide (Hydrochlorothiazide 25 Mg Tablet) 25 mg PO DAILY [facility] Last Admin: 06/23/20 09:10 Dose: 25 mg Documented by: Hydroxyzine Pamoate (Hydroxyzine Jessa 25 Mg Capsule) 50 mg PO Q4H PRN PRN PRN Reason: mild anxiety Loperamide HCl (Loperamide 2 Mg Capsule) 2 mg PO Q4H PRN PRN PRN Reason: LOOSE STOOLS Lorazepam (Lorazepam 1 Mg Tablet) 1 mg PO BID PRN PRN Reason: ANXIETY Losartan Potassium (Losartan Potassium 100 Mg Tablet) 100 mg PO DAILY [facility] Last Admin: 06/23/20 09:11 Dose: 100 mg Documented by: Metformin HCl (Metformin Hcl 500 Mg Tablet) [facility] Last Admin: 06/23/20 17:27 Dose: 500 mg Documented by: Nicotine (Nicotine 21 Mg Patch) 21 mg TD DAILY [facility] Last Admin: 06/23/20 09:12 Dose: 21 mg Documented by: Ondansetron HCl (Ondansetron 8 Mg Tablet) 8 mg PO Q8H PRN PRN PRN Reason: NAUSEA Pantoprazole Sodium (Pantoprazole Sodium 20 Mg Tablet) 20 mg PO BID [facility] Last Admin: 06/23/20 20:43 Dose: 20 mg Documented by: Phenobarbital (Phenobarbital 32.4 Mg Tablet) 64.8 mg PO Q4H [facility]; Taper Stop: 06/27/20 00:59 Last Admin: 06/24/20 05:05 Dose: 64.8 mg Documented by: Sodium Chloride (0.9% Saline Lock 10 Ml Syringe) 10 - 40 ml IV UD PRN PRN Reason: SALINE FLUSH Last Admin: 06/23/20 17:27 Dose: 10 ml Documented by: Thiamine HCl (Thiamine Hydrochloride 100 Mg Tablet) 100 mg PO DAILYCM [facility] Last Admin: 06/23/20 09:08 Dose: 100 mg Documented by: Topiramate (Topiramate 50 Mg Tablet) 50 mg PO BID [facility] Last Admin: 06/23/20 20:43 Dose: 50 mg Documented by: Trazodone HCl (Trazodone 100 Mg Tablet) 100 mg PO QHS PRN PRN PRN Reason: INSOMNIA Medical Necessity - Tobacco Use Smoking Status: Current every day smoker Tobacco Use: Secondhand, Cigarettes Assessment/Plan All Active Problems Alcohol dependence (Acute) 1. Acute alcohol withdrawal, improving, continue on the phenobarbital withdrawal protocol 2. Hypokalemia/hypomagnesemia, K 3.1, replaced, recheck in am 3. Hypertension, fairly controlled, continue on amlodipine, hydrochlorothiazide, Losartan 4. Hyperlipidemia, continue on statin 5. Bipolar disorder, continue on Buspar/Wellbutrin/Topiramate/Lorazepam/Cymbalta 6. DVT PPx- low risk with early ambulation Inpatient E&M: 62902 Subs Hosp L2
[2020-06-24] MEDS: Thiamine Hydrochloride 100 MG Tablet PO (08:29)
[2020-06-24] MEDS: Aspirin 81 MG TAB.CHEW PO (08:29)
[2020-06-24] MEDS: Folic Acid 1 MG Tablet PO (08:29)
[2020-06-24] MEDS: metFORMIN HCl 500 MG Tablet PO ×2 (08:29→17:06)
--- NOTE | 2020-06-24 09:15 | PCA ---
Addendum entered by Pretty Perez 06/24/20 19:39: Araceli from [facility] has called to the unit and has been conversing with Daily, Araceli states that pt has been accepted to the facility [facility] for their alcohol withdrawal program. Araceli is going to contact the and let her be aware of this also. Araceli stated that she cannot promise that they will have a bed on friday when patient is due to be discharged. We can call [facility] and ask if there is an available bed for him as he is on their priority list. Call [phone] and ask for admissions office. Original Note: Pt Daily called this am and voiced concerns of pt alcohol consumption. Strongly wants pt to go to inpatient rehab. Voiced to that we cannot force him to go to a facility, that the patient has to be willing. Daily understands. Daily states that her insurance covers 28 days at [facility] facility located in [place], [place]. states pt drinks liter amounts of bourbon daily and that pt has a serious problem. Pt has been drinking since he was 13. Daily would like to talk one on one Friday morning with [facility] , before pt is discharged with 180 and meets with .
[2020-06-24] MEDS: Pantoprazole Sodium 20 MG Tablet PO ×2 (09:36→21:59)
[2020-06-24] MEDS: DULoxetine Hcl 60 MG Capsule PO (09:36)
[2020-06-24] MEDS: busPIRone 5 MG Tablet 20 MG PO (09:36)
[2020-06-24] MEDS: hydroCHLOROthiazide 25 MG Tablet PO (09:37)
[2020-06-24] MEDS: amLODIPine 10 MG Tablet PO (09:37)
[2020-06-24] MEDS: Losartan Potassium 100 MG Tablet PO (09:37)
[2020-06-24] MEDS: Topiramate 50 MG Tablet PO ×2 (09:38→22:02)
[2020-06-24] MEDS: buPROPion (SR) 150 MG Tablet.SA PO ×2 (09:38→22:02)
[2020-06-24 09:39] LABS: AST(SGOT) 47 U/L (15-37); Alanine Aminotransfer ALT/SGPT 82 U/L (16-61); Albumin, Serum 3.7 g/dL (3.2-5.0); Alkaline Phosphatase 113 U/L (45-117); Anion Gap 8 (5-15); BUN 14 mg/dL (7-18); BUN/Creat Ratio 15.1 RATIO (10-20); Calcium,Total 9.4 mg/dL (8.5-10.1); Chloride 101 mmol/L (98-107); Creatinine, Serum 0.93 mg/dL (0.70-1.30); EST Glomerular Filtration Rate 91 mL/min (>60); Est Glom Filt Rate - Afr Amer 110 mL/min (>60); Estimated Creatinine Clearance 103.14 ml/min; Globulin 3.7 g/dL (2.2-4.2); Glucose 192 mg/dL (74-106); Magnesium 1.7 mg/dL (1.6-2.6); Protein, Total 7.4 g/dL (6.4-8.2); Sodium Level 135 mmol/L (136-145)
[2020-06-24 11:00] VITALS: BP 140/74; PULSE 60; RESP 18; TEMP 37; O2SAT 98
[2020-06-24 17:00] VITALS: BP 125/79; PULSE 71; RESP 18; TEMP 36.6; O2SAT 98
[2020-06-24 19:48] VITALS: BP 136/78; PULSE 65; RESP 16; TEMP 36.5; O2SAT 97
[2020-06-24] MEDS: Atorvastatin Calcium 40 MG Tablet PO (21:59)
[2020-06-24] MEDS: busPIRone 5 MG Tablet 10 MG PO (22:00)
[2020-06-24] MEDS: Insulin Lispro 100 UNIT/ML INSULN.PEN SC (22:08)
[2020-06-24 22:11] LABS: Bedside Glucose 234 mg/dL (70-110)
[2020-06-25] MEDS: Phenobarbital 32.4 MG Tablet PO ×4 (01:54→18:26)
[2020-06-25 01:55] VITALS: BP 130/73; PULSE 69; RESP 16; TEMP 36.4; O2SAT 97
[2020-06-25] MEDS: Insulin Lispro 100 UNIT/ML INSULN.PEN SC ×4 (06:26→21:20)
[2020-06-25 06:35] LABS: Bedside Glucose 182 mg/dL (70-110)
[2020-06-25 07:00] VITALS: BP 122/77; PULSE 77; RESP 18; TEMP 36.3; O2SAT 98
[2020-06-25 07:27] LABS: ALB/GLOB Ratio 1.1 RATIO (0.9-2.4); AST(SGOT) 40 U/L (15-37); Alanine Aminotransfer ALT/SGPT 77 U/L (16-61); Albumin, Serum 3.7 g/dL (3.2-5.0); Alkaline Phosphatase 111 U/L (45-117); Anion Gap 8 (5-15); BUN 13 mg/dL (7-18); BUN/Creat Ratio 14.6 RATIO (10-20); Calcium,Total 8.8 mg/dL (8.5-10.1); Chloride 102 mmol/L (98-107); Creatinine, Serum 0.89 mg/dL (0.70-1.30); EST Glomerular Filtration Rate 95 mL/min (>60); Est Glom Filt Rate - Afr Amer 115 mL/min (>60); Estimated Creatinine Clearance 107.78 ml/min; Globulin 3.4 g/dL (2.2-4.2); Glucose 148 mg/dL (74-106); Magnesium 1.7 mg/dL (1.6-2.6); Potassium 3.8 mmol/L (3.5-5.1); Protein, Total 7.1 g/dL (6.4-8.2); Sodium Level 137 mmol/L (136-145)
[2020-06-25] MEDS: Folic Acid 1 MG Tablet PO (07:34)
[2020-06-25] MEDS: Thiamine Hydrochloride 100 MG Tablet PO (07:34)
[2020-06-25] MEDS: Aspirin 81 MG TAB.CHEW PO (07:35)
[2020-06-25] MEDS: metFORMIN HCl 500 MG Tablet PO ×2 (07:35→17:02)
[2020-06-25 07:57] VITALS: BP 122/77; PULSE 77; RESP 16; TEMP 36.3; O2SAT 100
[2020-06-25] MEDS: busPIRone 5 MG Tablet 20 MG PO (09:43)
[2020-06-25] MEDS: Pantoprazole Sodium 20 MG Tablet PO ×2 (09:43→21:17)
[2020-06-25] MEDS: hydroCHLOROthiazide 25 MG Tablet PO ×2 (09:43)
[2020-06-25] MEDS: DULoxetine Hcl 60 MG Capsule PO (09:44)
[2020-06-25] MEDS: Losartan Potassium 100 MG Tablet PO (09:44)
[2020-06-25] MEDS: amLODIPine 10 MG Tablet PO (09:44)
[2020-06-25] MEDS: Topiramate 50 MG Tablet PO ×2 (09:45→21:17)
[2020-06-25] MEDS: buPROPion (SR) 150 MG Tablet.SA PO ×2 (09:45→21:19)
--- NOTE | 2020-06-25 10:45 | PN_ITS ---
Patient Problems: Active and Suspected Problems Alcohol dependence (Acute) Reason for Visit: Follow-up on acute alcohol withdrawal. Subjective: Patient was seen and examined. Denied any new complaints. Feels improved. Objective: Physical exam: General: Alert, Oriented x3, Cooperative, No apparent distress HEENT: Atraumatic, PERRLA, EOMI, Normocephalic Oral: Moist Mucosa Neck: Supple, No JVD Lungs: Clear to auscultation, Normal air movement, No rhonchi, No wheeze, No rales Cardiovascular: Regular rate, Regular Rhythm, Normal S1, Normal S2, No murmurs Abdomen: Soft, Non Tender, Non-Distended, No Hepato-splenomegaly Extremities: No edema, Capillary Refill Less than 3 Seconds Skin: No rashes, No breakdown Neurological: Neuro grossly intact, Sensory exam intact to light touch and pain Psych/Mental Status: Normal Affect, Appropriate Vitals/I&O's: Vital Signs Temp Pulse Resp BP Pulse Ox 97.3 F L 77 16 122/77 H 100 06/25/20 07:57 06/25/20 07:57 06/25/20 07:57 06/25/20 07:57 06/25/20 07:57 Oxygen Delivery Method Room Air Weight: 115.666 kg Body Mass Index (BMI) 34.5 Intake and Output for Last 24 Hours 06/23/20 06/24/20 06/25/20 23:59 23:59 23:59 Intake Total 1999 1804 / 1804 Balance 1999 1804 / 1804 Laboratory Results 06/24/20 22:05: POC Glucose 234 H 06/25/20 06:13: Sodium 137, Potassium 3.8, Chloride 102, Carbon Dioxide 27.0, Anion Gap 8, BUN 13, Creatinine 0.89, Estim Creat Clear Calc 107.78, Est GFR (MDRD) Af Amer 115, Est GFR (MDRD) Non-Af 95, BUN/Creatinine Ratio 14.6, Glucose 148 H, Calcium 8.8, Magnesium 1.7, Total Bilirubin 0.30, AST 40 H, ALT 77 H, Alkaline Phosphatase 111, Total Protein 7.1, Albumin 3.7, Globulin 3.4, Albumin/Globulin Ratio 1.1 06/25/20 06:24: POC Glucose 182 H Current Medications Amlodipine Besylate (Amlodipine 10 Mg Tablet) 10 mg PO DAILY [facility] Last Admin: 06/25/20 09:44 Dose: 10 mg Documented by: Aspirin (Aspirin 81 Mg Tab.Chew) 81 mg PO DAILY@0800 [facility] Last Admin: 06/25/20 07:35 Dose: 81 mg Documented by: Atorvastatin Calcium (Atorvastatin Calcium 40 Mg Tablet) 40 mg PO QHS [facility] Last Admin: 06/24/20 21:59 Dose: 40 mg Documented by: Bupropion HCl (Bupropion (Sr) 150 Mg Tablet.Sa) 150 mg PO BID [facility] Last Admin: 06/25/20 09:45 Dose: 150 mg Documented by: Buspirone HCl (Buspirone 5 Mg Tablet) 10 mg PO QHS [facility] Last Admin: 06/24/20 22:00 Dose: 10 mg Documented by: Buspirone HCl (Buspirone 5 Mg Tablet) 20 mg PO DAILY [facility] Last Admin: 06/25/20 09:43 Dose: 20 mg Documented by: Dextrose (Dextrose 50%-Water 25 Gm/50 Ml Disp.Syrin) 0 gm IV X1 PRN; Protocol PRN Reason: Hypoglycemia Dicyclomine HCl (Dicyclomine 10 Mg Capsule) 20 mg PO Q6H PRN PRN PRN Reason: abdominal discomfort Duloxetine HCl (Duloxetine Hcl 60 Mg Capsule) 60 mg PO DAILY [facility] Last Admin: 06/25/20 09:44 Dose: 60 mg Documented by: Folic Acid (Folic Acid 1 Mg Tablet) 1 mg PO DAILY@0800 [facility] Last Admin: 06/25/20 07:34 Dose: 1 mg Documented by: Gabapentin (Gabapentin 300 Mg Capsule) 300 mg PO Q8H PRN PRN PRN Reason: moderate to severe anxiety Glucagon (Glucagon 1 Mg/Ml Syringe) 1 mg IM .X1 PRN PRN Reason: Hypoglycemia Hydrochlorothiazide (Hydrochlorothiazide 25 Mg Tablet) 25 mg PO DAILY [facility] Last Admin: 06/25/20 09:43 Dose: 25 mg Documented by: Hydroxyzine Pamoate (Hydroxyzine Jessa 25 Mg Capsule) 50 mg PO Q4H PRN PRN PRN Reason: mild anxiety Insulin Human Lispro (Insulin Lispro 100 Unit/Ml Insuln.Pen) 0 unit SC [facility]; Protocol Last Admin: 06/25/20 06:26 Dose: 1 u Documented by: Loperamide HCl (Loperamide 2 Mg Capsule) 2 mg PO Q4H PRN PRN PRN Reason: LOOSE STOOLS Lorazepam (Lorazepam 1 Mg Tablet) 1 mg PO BID PRN PRN Reason: ANXIETY Losartan Potassium (Losartan Potassium 100 Mg Tablet) 100 mg PO DAILY [facility] Last Admin: 06/25/20 09:44 Dose: 100 mg Documented by: Metformin HCl (Met[facility] Hcl 500 Mg Tablet) [facility] Last Admin: 06/25/20 07:35 Dose: 500 mg Documented by: Nicotine (Nicotine 21 Mg Patch) 21 mg TD DAILY [facility] Last Admin: 06/25/20 09:44 Dose: 21 mg Documented by: Ondansetron HCl (Ondansetron 8 Mg Tablet) 8 mg PO Q8H PRN PRN PRN Reason: NAUSEA Pantoprazole Sodium (Pantoprazole Sodium 20 Mg Tablet) 20 mg PO BID [facility] Last Admin: 06/25/20 09:43 Dose: 20 mg Documented by: Phenobarbital (Phenobarbital 32.4 Mg Tablet) 64.8 mg PO Q6H [facility]; Taper Stop: 06/27/20 00:59 Last Admin: 06/25/20 06:22 Dose: 64.8 mg Documented by: Sodium Chloride (0.9% Saline Lock 10 Ml Syringe) 10 - 40 ml IV UD PRN PRN Reason: SALINE FLUSH Last Admin: 06/23/20 17:27 Dose: 10 ml Documented by: Thiamine HCl (Thiamine Hydrochloride 100 Mg Tablet) [facility] Last Admin: 06/25/20 07:34 Dose: 100 mg Documented by: Topiramate (Topiramate 50 Mg Tablet) 50 mg PO BID [facility] Last Admin: 06/25/20 09:45 Dose: 50 mg Documented by: Trazodone HCl (Trazodone 100 Mg Tablet) 100 mg PO QHS PRN PRN PRN Reason: INSOMNIA STROKE Vital Signs/Narrative: Vital Signs Temp Pulse Resp BP Pulse Ox 06/25/20 07:57 97.3 F L 77 16 122/77 H 100 06/25/20 07:00 97.3 F L 77 18 122/77 H 98 Medical Necessity - Tobacco Use Smoking Status: Current every day smoker Tobacco Use: Secondhand, Cigarettes Assessment/Plan All Active Problems Alcohol dependence (Acute) 1. Acute alcohol withdrawal, improving, Continue on the phenobarbital withdrawal protocol 2. Hypokalemia/hypomagnesemia, potassium is 3.8, magnesium is 1.7 We will replace magnesium, recheck in a.m. 3. Hypertension, controlled, continue on amlodipine, hydrochlorothiazide, Losartan 4. Hyperlipidemia, continue on statin 5. Bipolar disorder, continue on Buspar/Wellbutrin/Topiramate/Lorazepam/Cymbalta 6. DVT PPx- low risk with early ambulation Inpatient E&M: 88777 Subs Hosp L2
[2020-06-25] MEDS: hydrOXYzine PAM 25 MG Capsule 50 MG PO (11:36)
[2020-06-25 12:45] LABS: Bedside Glucose 305 mg/dL (70-110)
[2020-06-25 17:01] LABS: Bedside Glucose 253 mg/dL (70-110)
[2020-06-25 17:32] VITALS: BP 128/74; PULSE 78; RESP 16; TEMP 37.2; O2SAT 100
[2020-06-25 20:25] VITALS: BP 123/78; PULSE 63; RESP 16; TEMP 36.3; O2SAT 97
[2020-06-25 20:26] VITALS: BP 123/78; PULSE 63; RESP 16; TEMP 36.3; O2SAT 97
[2020-06-25] MEDS: Atorvastatin Calcium 40 MG Tablet PO (21:17)
[2020-06-25] MEDS: busPIRone 5 MG Tablet 10 MG PO (21:17)
[2020-06-25 21:26] LABS: Bedside Glucose 230 mg/dL (70-110)
[2020-06-26] MEDS: Phenobarbital 32.4 MG Tablet PO ×2 (01:05→06:39)
[2020-06-26 01:13] VITALS: BP 110/69; PULSE 65; RESP 16; TEMP 36.3; O2SAT 97
[2020-06-26] MEDS: Insulin Lispro 100 UNIT/ML INSULN.PEN SC (06:39)
[2020-06-26 06:41] VITALS: BP 127/82; PULSE 71; RESP 18; TEMP 36.1; O2SAT 96
[2020-06-26 06:46] LABS: Bedside Glucose 255 mg/dL (70-110)
--- NOTE | 2020-06-26 08:59 | NURSING ---
This nurse texted Dr. Lorenzo to inform him that pt needs to be discharged and out of the hospital by 1030 as pt has a meeting with [facility] today.
[2020-06-26] MEDS: Thiamine Hydrochloride 100 MG Tablet PO (09:06)
[2020-06-26] MEDS: buPROPion (SR) 150 MG Tablet.SA PO (09:07)
[2020-06-26] MEDS: DULoxetine Hcl 60 MG Capsule PO (09:07)
[2020-06-26] MEDS: metFORMIN HCl 500 MG Tablet PO (09:07)
[2020-06-26] MEDS: amLODIPine 10 MG Tablet PO (09:07)
[2020-06-26] MEDS: Pantoprazole Sodium 20 MG Tablet PO (09:07)
[2020-06-26] MEDS: Aspirin 81 MG TAB.CHEW PO (09:07)
[2020-06-26] MEDS: Folic Acid 1 MG Tablet PO (09:07)
[2020-06-26] MEDS: busPIRone 5 MG Tablet 20 MG PO (09:07)
[2020-06-26] MEDS: Topiramate 50 MG Tablet PO (09:08)
[2020-06-26] MEDS: Losartan Potassium 100 MG Tablet PO (09:08)
[2020-06-26] MEDS: hydroCHLOROthiazide 25 MG Tablet PO (09:13)
[2020-06-26] MEDS: Magnesium Chloride 64 MG Delay Rel.Tablet 128 MG PO (09:13)
--- NOTE | 2020-06-26 09:13 | DCINST_ITS ---
- Discharge Diagnoses Current Active Problems: Current Active and Chronic Problems Alcohol dependence (Acute) You will use the following diet at home:: No restrictions Your liquids should be the consistency of: Regular/Thin Discharge Activity: Return to Normal Activity Weight Bearing Status: Full weight bearing Allergies/Adverse Reactions: Allergies No Known Allergies Allergy (Verified 06/22/20 14:32) Medications to take at Discharge Amlodipine Besylate [Norvasc] 10 mg PO DAILY 06/22/20 Aspirin [Aspirin, Baby] 81 mg PO DAILY@0800 06/22/20 Atorvastatin Calcium [Lipitor] 40 mg PO QHS 06/22/20 Bupropion HCl [Wellbutrin Xl] 150 mg PO BID 06/22/20 Buspirone HCl 20 mg PO DAILY 06/22/20 Cholecalciferol (Vitamin D3) [Vitamin D3] 25 mcg PO DAILY 06/22/20 Cyanocobalamin [Vitamin B12] 1,000 mcg SC Q30D 06/22/20 Duloxetine Hcl [Cymbalta] 60 mg PO DAILY 06/22/20 Hydrochlorothiazide [Hctz] 25 mg PO DAILY 06/22/20 Lorazepam 1 mg PO BID PRN 06/22/20 Losartan Potassium [Cozaar] 100 mg PO DAILY 06/22/20 Metformin HCl 500 mg PO BID 06/22/20 Omeprazole 20 mg PO BID 06/22/20 Topiramate [Topamax] 50 mg PO BID 06/22/20 Buspirone HCl 10 mg PO QHS 06/23/20 Primary Care Physician: Layton Schaeffer MD [Primary Care Provider] - Please follow up with your Primary Care Physician in: in 2-3 weeks Test Results: Test results from this visit will be discussed in further detail at your follow- up appointment, if applicable. Please Follow Up With: 180 as directed
--- NOTE | 2020-06-26 09:56 | ADDICTION ---
This financial underwriter met with PT in his room to finalize d/c plan. PT plans to go to [facility] following d/c from [facility] and will admit into the Residential program per his . PT requested to follow up with [facility] upon d/c from [facility].
[2020-06-26 10:12] VITALS: BP 127/82; PULSE 69; RESP 16; TEMP 35.8; O2SAT 97
--- NOTE | 2020-06-26 11:47 | NURSING ---
shift assessment done @ 0915. denies pain or nausea. not requiring any prn medications this am. to take to [facility] for further rehab.
--- NOTE | 2020-06-27 19:22 | DS.PCM_ITS ---
Discharge Date and Diagnosis - Problem List Patient Problems: Active and Suspected Problems Alcohol dependence (Acute) Date of Admission: 06/22/20 Date of Discharge: 06/26/20 - Primary Discharge Diagnosis Acute Problems: Active Problems #1 acute alcohol withdrawal #2 chronic alcoholism #3 essential hypertension #4 gastroesophageal reflux disease #5 type 2 diabetes #6 hypokalemia #7 hypomagnesemia #8 hyperlipidemia #9 chronic depression - Secondary Discharge Diagnosis Chronic Problems: Chronic Problems Obesity (Chronic) Gastroesophageal reflux disease (Chronic) Benign essential HTN (Chronic) Hospital Course and Treatment Operations: None Procedures: None Summary of Care Provided: The patient is a 50 year old M was seen in the emergency room at [facility] requesting services for alcohol detox, patient was admitted to [place] [address] using the standard orders for alcohol withdrawal and alcohol detox, he had no major problems during his hospital admission, he was set up to go directly to an inpatient detox facility at the time of discharge from the [facility]. On 06/26/2020, patient was seen and examined: On examination he appeared in good health and spirits. Vital signs as documented. Skin warm and dry and without overt rashes. Neck without JVD, neck was supple, trachea midline, thyroid was normal. Lungs clear bilaterally, normal air movement was noted. Heart exam notable for regular rhythm, normal sounds and absence of murmurs, rubs or gallop s. Abdomen unremarkable and without evidence of organomegaly, masses, or abdominal aortic enlargement. Bowel sounds are present, abdomen is not distended. Extremities nonedematous, no cyanosis was noted, no clubbing was noted. Neuro: Cranial nerves II through XII are grossly intact, no focal motor deficits were noted, sensation to light touch and pinprick intact, motor exam 5/5 throughout. Psych: Patient is alert and oriented x3, he does not appear anxious or depressed, he does not appear agitated. Patient was discharged in stable condition on 06/26/2020. Patient Problems: Active and Suspected Problems Alcohol dependence (Acute) - Physical Exam Vitals/I&O's: Vital Signs Temp Pulse Resp BP Pulse Ox 96.4 F L 69 16 127/82 H 97 06/26/20 10:12 06/26/20 10:12 06/26/20 10:12 06/26/20 10:12 06/26/20 10:12 Oxygen Delivery Method Room Air Weight: 115.666 kg Body Mass Index (BMI) 34.5 Intake and Output for Last 24 Hours 06/25/20 06/26/20 06/27/20 23:59 23:59 23:59 Intake Total 2203 Balance 2203 Discharge Activity: Return to Normal Activity Weight Bearing Status: Full weight bearing Home Medications: Medications to take at Discharge Amlodipine Besylate [Norvasc] 10 mg PO DAILY 06/22/20 Aspirin [Aspirin, Baby] 81 mg PO DAILY@0800 06/22/20 Atorvastatin Calcium [Lipitor] 40 mg PO QHS 06/22/20 Bupropion HCl [Wellbutrin Xl] 150 mg PO BID 06/22/20 Buspirone HCl 20 mg PO DAILY 06/22/20 Cholecalciferol (Vitamin D3) [Vitamin D3] 25 mcg PO DAILY 06/22/20 Cyanocobalamin [Vitamin B12] 1,000 mcg SC Q30D 06/22/20 Duloxetine Hcl [Cymbalta] 60 mg PO DAILY 06/22/20 Hydrochlorothiazide [Hctz] 25 mg PO DAILY 06/22/20 Lorazepam 1 mg PO BID PRN 06/22/20 Losartan Potassium [Cozaar] 100 mg PO DAILY 06/22/20 Metformin HCl 500 mg PO BID 06/22/20 Omeprazole 20 mg PO BID 06/22/20 Topiramate [Topamax] 50 mg PO BID 06/22/20 Buspirone HCl 10 mg PO QHS 06/23/20 Primary Care Physician: Layton Schaeffer MD [Primary Care Provider] - Please follow up with your Primary Care Physician in: in 2-3 weeks Please Follow Up With: 180 as directed Disposition: Home Minutes spent on discharge:: 32 Patient Condition:: Stable Medical Necessity - Tobacco Use Smoking Status: Current every day smoker Tobacco Use: Secondhand, Cigarettes Meaningful Use Info Meaningful Use Diagnoses (Choose all that apply): None applicable Inpatient E&M: 43540 Disch Hosp
== END 2020-06-26 10:33 | disposition home or self-care (01) | DRG 897 ==
LOC: ED 15:44 → MS3 06-23 07:23
PROVIDERS: Internal Medicine; Admitting Provider Family Medicine; Emergency Provider Emergency Medicine; PCP Family Medicine; Visit Provider Internal Medicine
DX: F10.239 Alcohol dependence with withdrawal, unspecified (principal); Y90.5 Blood alcohol level of 100-119 mg/100 ml; I10 Essential (primary) hypertension; K21.9 Gastro-esophageal reflux disease without esophagitis; E11.9 Type 2 diabetes mellitus without complications; E87.6 Hypokalemia; E83.42 Hypomagnesemia; E78.5 Hyperlipidemia, unspecified; F31.9 Bipolar disorder, unspecified; F41.9 Anxiety disorder, unspecified; F17.210 Nicotine dependence, cigarettes, uncomplicated; E66.9 Obesity, unspecified; Z68.35 Body mass index [BMI] 35.0-35.9, adult; Z87.820 Personal history of traumatic brain injury; Z79.84 Long term (current) use of oral hypoglycemic drugs; Z79.899 Other long term (current) drug therapy; Z79.82 Long term (current) use of aspirin
CPT/HCPCS: 36415; 80053; 80307; 82077; 82962; 83735; 85025; 99218; 99283; 99406; A4216; G0378

== ENCOUNTER → 2020-11-02 13:57 | Outpatient (CLI) | payer OTHER, SELFPAY ==
[2020-11-02 18:53] LABS: Hemoglobin A1c 6.5 % (3.8-5.6)
[2020-11-02 18:55] LABS: ALB/GLOB Ratio 1.2 RATIO (0.9-2.4); AST(SGOT) 22 U/L (15-37); Alanine Aminotransfer ALT/SGPT 48 U/L (16-61); Alkaline Phosphatase 109 U/L (45-117); Anion Gap 6 (5-15); BUN 13 mg/dL (7-18); BUN/Creat Ratio 14.4 RATIO (10-20); Calcium,Total 8.8 mg/dL (8.5-10.1); Chloride 106 mmol/L (98-107); Cholesterol 145 mg/dL (200); EST Glomerular Filtration Rate 94 mL/min (>60); Est Glom Filt Rate - Afr Amer 114 mL/min (>60); Globulin 3.4 g/dL (2.2-4.2); Glucose 161 mg/dL (74-106); High Density Lipoprotein 31 mg/dL; Potassium 3.8 mmol/L (3.5-5.1); Protein, Total 7.4 g/dL (6.4-8.2); Sodium Level 138 mmol/L (136-145); Triglycerides 148 mg/dL; Very Low Density Lipoprotein 30 mg/dL (5-40)
== END ==
PROVIDERS: PCP Family Medicine; Visit Provider Family Medicine
DX: E11.9 Type 2 diabetes mellitus without complications (principal)
CPT/HCPCS: 36415; 80053; 80061; 83036

== ENCOUNTER 2021-11-06 21:43 | Emergency (ER) | payer MEDICARE, SELFPAY ==
[2021-11-06 21:46] VITALS: BP 137/69; PULSE 78; RESP 15; TEMP 36.8; O2SAT 98; BMI 36.6
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
[2021-11-06 22:46] VITALS: RESP 15
[2021-11-06 22:46] LABS: Absolute Lymphocyte Count 4.03 X10^3/uL (0.83-4.51); Absolute Neutrophil Count 2.8 X10^3/uL (2.0-7.7); Basophil# 0.07 X10^3/uL; Basophil% 0.9 % (0-1); Eosinophil# 0.34 X10^3/uL; Eosinophils% 4.3 % (0-5); Hematocrit 41.5 % (40-54); Hemoglobin 14.6 g/dL (13.0-16.5); Lymphocyte # 4.03 X10^3/ul (0.83-4.51); Mean Corp Hgb Conc 35.2 g/dL (32-36); Mean Corpuscular Hgb 32.3 pg (27.0-32.0); Mean Corpuscular Volume 91.8 fL (80-94); Mean Platelet Vol. 11.1 fl (6.2-12.0); Monocyte# 0.62 X10^3/uL; Monocyte% 7.8 % (0-10); NRBC Flagged by Analyzer 0 % (0-5); Neutrophil % 35.5 % (47-70); Platelet Count 289 K/mm3 (150-450); RBC Distribution Width CV 13.1 % (11.6-14.6); RBC Distribution Width SD 43.9 fl (35.1-43.9); Red Blood Count 4.52 M/mm3 (4.6-6.2); White Blood Count 7.9 K/mm3 (4.4-11.0)
[2021-11-06 22:50] LABS: Amphetamine Urine VISTA NEGATIVE (<1000 ng/mL); Barbiturate Urine VISTA NEGATIVE (< 200 ng/mL); Benzodiazepine Urine VISTA NEGATIVE (< 200 ng/mL); Cocaine Urine VISTA NEGATIVE (< 300 ng/mL); Ecstacy Urine VISTA POSITIVE (< 500 ng/mL); Methadone Urine VISTA NEGATIVE (< 300 ng/mL); PCP Urine VISTA NEGATIVE (< 25 ng/mL); THC Urine VISTA NEGATIVE (< 50 ng/mL); Vista UDS pH Range 5
[2021-11-06 23:00] VITALS: RESP 14
[2021-11-06 23:00] LABS: Anion Gap 8 (5-15); BUN 7 mg/dL (7-18); BUN/Creat Ratio 7.9 RATIO (10-20); Calcium,Total 8.8 mg/dL (8.5-10.1); Chloride 109 mmol/L (98-107); Creatinine, Serum 0.88 mg/dL (0.70-1.30); EST Glomerular Filtration Rate 96 mL/min (>60); Est Glom Filt Rate - Afr Amer 116 mL/min (>60); Estimated Creatinine Clearance 107.78 ml/min; Glucose 129 mg/dL (74-106); Potassium 3.2 mmol/L (3.5-5.1); Sodium Level 141 mmol/L (136-145)
--- NOTE | 2021-11-06 23:31 | ED.RN ---
per pt has already taken night time meds
[2021-11-07] VITALS (17 sets, daily range): BP systolic 122–146; BP diastolic 74–94; PULSE 64–90; RESP 14–18; TEMP 36.4–36.6; O2SAT 95–99
[2021-11-07] MEDS: Aspirin 81 MG TAB.CHEW PO (07:57)
[2021-11-07] MEDS: buPROPion (XL) 150 MG TABLET.XL PO (09:18)
[2021-11-07] MEDS: DULoxetine Hcl 60 MG Capsule PO (09:18)
[2021-11-07] MEDS: amLODIPine 10 MG Tablet PO (09:18)
[2021-11-07] MEDS: hydroCHLOROthiazide 25 MG Tablet PO (09:18)
[2021-11-07] MEDS: Cholecalciferol (VIT D3) 25 MCG TABLET (1,000 UNITS) PO (09:18)
[2021-11-07] MEDS: Pantoprazole Sodium 20 MG Tablet PO (09:21)
[2021-11-07] MEDS: Topiramate 50 MG Tablet PO (09:38)
--- NOTE | 2021-11-07 13:51 | NURSING ---
[facility]XED [facility] TEST [facility]
--- NOTE | 2021-11-07 17:27 | NURSING ---
FAXED [facility], COVID , MEDICALLY CLEARED PAPER, AND PINK SLIP TO [facility]
--- NOTE | 2021-11-07 17:41 | NURSING ---
ACCEPTED AT [facility], DUEL DIAGNOSIS NURSE TO NURSE [phone]
--- NOTE | 2021-11-07 17:45 | NURSING ---
CALLED [facility], ETA IS 3 TO 4
== END 2021-11-07 21:59 ==
PROVIDERS: Emergency Provider Emergency Medicine; PCP Family Medicine; Visit Provider Emergency Medicine
DX: R45.851 Suicidal ideations (principal); F10.129 Alcohol abuse with intoxication, unspecified; Y90.7 Blood alcohol level of 200-239 mg/100 ml; F17.210 Nicotine dependence, cigarettes, uncomplicated; Z87.820 Personal history of traumatic brain injury
CPT/HCPCS: 80048; 80307; 82077; 85025; 87811; 99285; J3420

== ENCOUNTER → 2021-12-05 | Outpatient (CLI) | payer MEDICARE, SELFPAY ==
--- NOTE | 2021-12-05 10:01 | RAD_ITS ---
INDICATION: PAIN EXAMINATION/TECHNIQUE: X-RAY - LEFT XR Shoulder Min 2 Views 4 VIEWS COMPARISON: 01/12/2015. FINDINGS: SOFT TISSUES: No soft tissue swelling or gas. No radiopaque foreign body. unremarkable left lung field BONES/JOINTS: No acute fracture or subluxation.. Unremarkable alignment. Preservation of the joint space.. No sclerotic or destructive changes observed. Mild degenerative changes visualized in the left the common clinical joint and in the left greater tuberosity. RAD/Shoulder min 2 Views IMPRESSION: Mild degenerative changes, no evidence of acute osseous abnormality. Electronically Signed: Krnual Navarro MD at 12:59 EDT ,
== END | disposition home or self-care (01) ==
LOC: MTRAD 09:59
PROVIDERS: PCP Family Medicine; Referring Provider Family Medicine; Visit Provider Family Medicine
DX: M19.012 Primary osteoarthritis, left shoulder (principal)
CPT/HCPCS: 73030

== ENCOUNTER → 2022-09-26 | Outpatient (CLI) | payer MEDICARE, SELFPAY ==
[2022-09-26 12:32] LABS: Microalbumin,Random Urine 29.3 mg/L (NO RANGE EST.); Microalbumin:Creatinine Ratio 16.5 mg/g CRE (<30 mg/g CRE)
[2022-09-26 12:53] LABS: Anion Gap 6 (5-15); BUN 18 mg/dL (7-18); BUN/Creat Ratio 19.7 RATIO (10-20); Calcium,Total 8.7 mg/dL (8.5-10.1); Chloride 106 mmol/L (98-107); Cholesterol 165 mg/dL (200); Creatinine, Serum 0.91 mg/dL (0.70-1.30); EST Glomerular Filtration Rate 92 mL/min (>60); Est Glom Filt Rate - Afr Amer 112 mL/min (>60); Glucose 143 mg/dL (74-106); High Density Lipoprotein 37 mg/dL; Potassium 3.6 mmol/L (3.5-5.1); Sodium Level 139 mmol/L (136-145); Triglycerides 333 mg/dL; Very Low Density Lipoprotein 67 mg/dL (5-40)
[2022-09-26 15:04] LABS: Hemoglobin A1c 6.7 % (3.8-5.6)
== END | disposition home or self-care (01) ==
PROVIDERS: PCP Family Medicine; Visit Provider Family Medicine
DX: E11.9 Type 2 diabetes mellitus without complications (principal)
CPT/HCPCS: 36415; 80048; 80061; 82043; 82570; 83036

== ENCOUNTER → 2023-04-16 | Outpatient (CLI) | payer MEDICARE, SELFPAY ==
--- NOTE | 2023-04-16 09:09 | RAD_ITS ---
STUDY: X-RAY - LEFT HAND REASON FOR EXAM: Male, 52 years old. Pain. TECHNIQUE: 3 view(s) of the hand. COMPARISON: None. FINDINGS: Normal radiocarpal articulation. Normal distal radioulnar joint. Normal visualized carpal bones. Normal carpal articulations Normal carpometacarpal articulation of the thumb. Normal second through fifth carpometacarpal joints. Normal metacarpi. Normal metacarpophalangeal joint of the thumb. Normal interphalangeal joint of the thumb. Normal proximal and distal phalanges of the thumb. Normal metacarpophalangeal joints of the second through fifth fingers. Normal proximal and distal interphalangeal joints of the second through fifth fingers. Normal phalanges of the second through fifth fingers. The soft tissue structures are normal. RAD/Hand Min 3 Views IMPRESSION: Normal x-ray examination of the hand. Electronically Signed: Naseem Bolton MD at 13:18 EST ,
--- NOTE | 2023-04-16 09:09 | RAD_ITS ---
STUDY: X-RAY - RIGHT HAND REASON FOR EXAM: Male, 52 years old. Pain. TECHNIQUE: 3 view(s) of the hand. COMPARISON: None. FINDINGS: Normal radiocarpal articulation. Normal distal radioulnar joint. Normal visualized carpal bones. Normal carpal articulations Normal carpometacarpal articulation of the thumb. Normal second through fifth carpometacarpal joints. Normal metacarpi. Normal metacarpophalangeal joint of the thumb. Normal interphalangeal joint of the thumb. Normal proximal and distal phalanges of the thumb. Normal metacarpophalangeal joints of the second through fifth fingers. Normal proximal and distal interphalangeal joints of the second through fifth fingers. Normal phalanges of the second through fifth fingers. Normal soft tissues. RAD/Hand Min 3 Views IMPRESSION: Normal x-ray examination of the hand. Electronically Signed: Naseem Bolton MD at 13:18 EST ,
[2023-04-16 10:50] LABS: Anion Gap 7 (5-15); BUN 14 mg/dL (7-18); BUN/Creat Ratio 14.2 RATIO (10-20); Chloride 97 mmol/L (98-107); Cholesterol 200 mg/dL (200); Creatinine, Serum 0.99 mg/dL (0.70-1.30); EST Glomerular Filtration Rate 84 mL/min (>60); Est Glom Filt Rate - Afr Amer 102 mL/min (>60); Glucose 101 mg/dL (74-106); High Density Lipoprotein 36 mg/dL; Potassium 3.5 mmol/L (3.5-5.1); Sodium Level 132 mmol/L (136-145); Triglycerides 165 mg/dL; Very Low Density Lipoprotein 33 mg/dL (5-40)
[2023-04-16 11:29] LABS: Microalbumin,Random Urine 9.3 mg/L (NO RANGE EST.); Microalbumin:Creatinine Ratio 9.9 mg/g CRE (<30 mg/g CRE)
== END | disposition home or self-care (01) ==
PROVIDERS: PCP Family Medicine; Referring Provider Family Medicine; Visit Provider Family Medicine
DX: I10 Essential (primary) hypertension (principal); M79.641 Pain in right hand; M79.642 Pain in left hand
CPT/HCPCS: 36415; 73130; 80048; 80061; 82043; 82570

== ENCOUNTER → 2024-03-18 | Outpatient (CLI) | payer MEDICARE, SELFPAY ==
--- NOTE | 2024-03-18 15:38 | RAD_ITS ---
INDICATION: RIB INJURY EXAMINATION/TECHNIQUE: X-RAY - XR Ribs Unilateral Min 2 Views COMPARISON: Prior study dated: Chest x-ray 05/12/2016 FINDINGS: Probable nondisplaced fracture of the anterolateral aspect of the eighth rib. No other definite fracture identified. No definite pneumothorax identified. RAD/Ribs Unil 2V No CXR IMPRESSION: Suspect nondisplaced eighth rib fracture. Electronically Signed: Radha Lee MD at 8:09 EST ,
== END | disposition home or self-care (01) ==
PROVIDERS: PCP Family Medicine; Referring Provider Family Medicine; Visit Provider Family Medicine
DX: S29.9XXA Unspecified injury of thorax, initial encounter (principal)
CPT/HCPCS: 71100

== ENCOUNTER 2024-03-23 08:22 | Emergency (ER) | payer MEDICARE, SELFPAY ==
[2024-03-23 08:22] VITALS: BP 118/85; PULSE 86; RESP 18; TEMP 36.9; O2SAT 99; BMI 31.6
--- NOTE | 2024-03-23 08:49 | EDS_ITS ---
HPI History of Present Illness Chief Complaint: Chest Other Informant: patient Onset/Context/Timing Onset: Yesterday Context: Gradual Onset Timing: Continuous Quality: Stabbing Location: Right flank and lumbar area Worsened by: Movement, coughing Relieved by: Remaining still Narrative Narrative: Patient presents with low back and flank pain that began last night. Patient states it came on gradually. Patient states it has been constant. Patient states it is worse with any movement or coughing. Patient states it is better when he was able to remain still. Patient describes his pain as stabbing. Patient states it is localized to the right lower lumbar area and right flank area. Patient has any radiation of the pain. Patient denies any bowel or bladder changes. Patient denies any paresthesias or weakness. Patient denies any saddle anesthesia. [facility] Medical History (Updated 03/23/24 @ 12:[address] Neri Leiva, DO) Gastroesophageal reflux disease Benign essential HTN TBI (traumatic brain injury) Home Medications ?Medication ?Instructions ?Recorded ?Last Taken ?Type amlodipine 10 mg tablet 10 mg PO DAILY 06/22/20 Unknown History aspirin 81 mg chewable tablet 81 mg PO DAILY@0800 06/22/20 Unknown History atorvastatin 40 mg tablet 40 mg PO DAILY 06/22/20 Unknown History bupropion HCl 150 mg 24 hr tablet, 150 mg PO BID 06/22/20 Unknown History extended release buspirone 10 mg tablet 20 mg PO QHS anxiety 06/22/20 Unknown History cholecalciferol (vitamin D3) 25 25 mcg PO DAILY 06/22/20 Unknown History mcg (1,000 unit) capsule cyanocobalamin (vitamin B-12) 1,000 mcg subcut Q30D 06/22/20 Unknown History 1,000 mcg/mL injection solution duloxetine 60 mg capsule,delayed 60 mg PO DAILY 06/22/20 Unknown History release hydrochlorothiazide 25 mg tablet 25 mg PO DAILY 06/22/20 Unknown History metformin 500 mg tablet 500 mg PO BID 06/22/20 Unknown History omeprazole 20 mg capsule,delayed 20 mg PO DAILY 06/22/20 Unknown History release topiramate 50 mg tablet 50 mg PO BID 06/22/20 Unknown History hydroxyzine HCl 25 mg tablet 25 tab PO QHS 11/06/21 Unknown History naltrexone 50 mg tablet 50 mg PO DAILY 11/06/21 Unknown History sildenafil 100 mg tablet 1 tab PO PRN PRN intercourse 11/06/21 Unknown History meloxicam 15 mg tablet 15 mg PO DAILY #20 tabs 12/17/23 Unknown Rx oxycodone 5 mg tablet 5 mg PO Q6H PRN pain 7 days #28 12/17/23 Unknown Rx tabs hydrocodone-acetaminophen 5-325mg 1 tab PO Q6H PRN PRN Pain 3 days 03/23/24 Unknown Rx 5mg-325mg #10 TABLETS Allergy/AdvReac Type Severity Reaction Status Date / Time No Known Allergies Allergy Verified 11/06/21 21:53 Surgical History Hx of tonsillectomy Hx of right knee surgery Social History Smoking Status: Current every day smoker tobacco type: cigarettes ROS ROS ED Constitutional Constitutional ED: Denies chills or fever(s) Eyes Eyes: Denies blurry vision or change in vision ENT ENT ED: Denies rhinorrhea or sore throat Cardiovascular Cardiovascular: Denies chest pain or palpitations Respiratory/Chest Respiratory/Chest: Reports cough; Denies dyspnea Gastrointestinal Gastrointestinal: Reports nausea; Denies vomiting Genitourinary Genitourinary ED: Denies dysuria or hematuria Musculoskeletal Musculoskeletal: Reports back pain; Denies neck pain Integumentary Denies abscess or rash Neurologic Neurologic: Reports headache(s); Denies weakness Allergic/Immunologic Allergic/Immunologic ED: Denies mouth swelling or urticaria EXAM Physical Exam Const Vital Signs: 03/23/24 08:22 03/23/24 09:52 03/23/24 10:22 Temperature 98.4 F Temperature Source Oral Pulse Rate 86 70 Respiratory Rate 18 18 Respiratory Effort Normal Blood Pressure 118/85 H 132/82 H Blood Pressure Mean 96 98 Pulse Ox 99 96 Oxygen Delivery Method Room Air Room Air Positive well nourished and well developed General Appearance ED: well developed and NAD HEENT Reports moist mucous membranes Neck supple and no JVD Resp normal respiratory effort and clear to auscultation bilaterally Cardio regular rate and regular rhythm GI non-tender and non-distended Palpation: soft Back/Spine Back/Spine Narrative: There is tenderness over the right lumbar paraspinal muscles. There is no midline tenderness or there is no bony crepitus or step-off. Range of motion was limited in all motions of the lumbar spine secondary to pain. General Back: CVA tenderness right Extremity normal to inspection General Extremety ED: Negative for edema or tenderness General Extremity: Negative for edema Neuro oriented x3, CN's II-XII intact bilaterally and no sensory deficits noted Sensorium / Orientation: alert Motor Exam: strength 5/5 throughout Psych mental status grossly normal MDM MDM MDM Narrative Medical decision making narrative: Differential diagnosis includes lumbosacral strain, ureteral calculus, appendicitis, gastroenteritis, urinary tract infection, and pyelonephritis. CBC will be obtained to assess for leukocytosis and anemia. Basic metabolic profile will be obtained to assess for electrolyte abnormality and renal function. Urinalysis will be obtained to assess for urinary tract infection and hematuria. CT scan of the abdomen and pelvis will be obtained to assess for ureteral calculus. Lab Data Attestation: I reviewed the patient's lab results. Lab results narrative: Results CBC was reviewed. There is a slight anemia with a hemoglobin of 12.5 and hematocrit of 33.4. The remainder is within normal limits. Basic metabolic profile was reviewed. Sodium was slightly low at 125 and chloride was slightly low at 87. The remainder was essentially within normal limits. Anion gap was normal. Urinalysis was reviewed. There is no evidence of urinary tract infection or hematuria. Labs: Laboratory Results - last 24 hr 03/23/24 03/23/24 09:05 10:20 WBC 5.6 RBC 3.54 L Hgb 12.5 L Hct 33.4 L MCV 94.4 H MCH 35.3 H MCHC 37.4 H RDW Std Deviation 42.8 RDW Coeff of Filippo 12.3 Plt Count 245 MPV 10.1 Immature Gran % (Auto) 0.200 Neut % (Auto) 69.4 Lymph % (Auto) 18.6 L [place] % (Auto) 8.6 Eos % (Auto) 2.5 Baso % (Auto) 0.7 Absolute Neuts (auto) 3.9 Absolute Lymphs (auto) 1.04 Nucleated RBC % 0 Sodium 125 L Potassium 3.6 Chloride 87 L Carbon Dioxide 27.0 Anion Gap 11 BUN 4 L Creatinine 0.62 L Estim Creat Clear Calc 171.23 Est GFR (MDRD) Af Amer 175 Est GFR (MDRD) Non-Af 144 BUN/Creatinine Ratio 6.5 L Glucose 121 H Calcium 8.4 L Urine Color Straw Urine Clarity Clear Urine pH 8.0 Ur Specific [place] 1.010 Urine Protein Negative Urine Glucose (UA) Normal Urine Ketones Negative Urine Occult Blood Negative Urine Nitrite Negative Urine Bilirubin Negative Urine Urobilinogen Normal Ur Leukocyte Esterase Negative Urine RBC 0 SEEN Urine WBC 0 SEEN Ur Squamous Epith Cells 0-5 SEEN Urine Bacteria 0 SEEN Urine Mucus 0 SEEN Radiography Diagnostic Testing: Clinical Impression(s) from Imaging Studies Abdomen/Pelvis CT 03/23/24 08:55 IMPRESSION: No evidence of ureteral obstruction. Distention of the urinary bladder. No acute abnormality is seen. Electronically Signed: Elmer Quintanilla MD at 10:30 EST , CT scan of the abdomen and pelvis was obtained. There is no free air or free fluid. There is no ureteral calculus or obstruction noted. There is no acute abnormality noted. This was interpreted by the radiologist and was also independently reviewed by myself. Treatment and Re-Evaluation :: Patient was given IV fluids, morphine, and Zofran. Patient was given a dose of Dilaudid. Patient was feeling better on reevaluation. Patient was advised of his findings. Patient was advised that this is most likely muscular strain. Patient was given a prescription for a short course of [place]. Patient was instructed to use ice to the area. Patient was instructed to follow-up with his primary care physician in 5 to 7 days. Patient was instructed to return if worse in any way. Patient understood and was agreeable with the plan. All questions were answered. Discharge Plan Triage Chief Complaint: Chest Other ED Provider: Neri Leiva Dx/Rx/DC Orders Clinical Impression: Acute low back pain, Benign essential HTN Instructions: ED Back Pain (Acute or Chronic) Prescriptions: New hydrocodone-acetaminophen 5-325 mg tablet 1 tab PO Q6H PRN PRN (Reason: Pain) 3 Days Qty: 10 0RF No Action atorvastatin 40 MG tablet 40 mg PO DAILY metformin 500 MG tablet 500 mg PO BID Rx Instructions: give at 0900 and 1700 amlodipine 10 MG tablet 10 mg PO DAILY cyanocobalamin (vitamin B-12) 1,000 MCG/ML solution 1,000 mcg SC Q30D buspirone 10 MG tablet 20 mg PO QHS omeprazole 20 MG capsule,delayed release(DR/EC) 20 mg PO DAILY aspirin 81 MG tablet,chewable 81 mg PO DAILY@0800 hydrochlorothiazide 25 MG tablet 25 mg PO DAILY cholecalciferol (vitamin D3) 25 MCG capsule 25 mcg PO DAILY bupropion HCl 150 MG tablet extended release 24 hr 150 mg PO BID topiramate 50 MG tablet 50 mg PO BID duloxetine 60 MG capsule 60 mg PO DAILY naltrexone 50 mg Tablet 50 mg PO DAILY sildenafil 100 mg tablet 1 tab PO PRN PRN (Reason: intercourse) Patient Comments: Take 1/2 - 1 Tablet one hour prior to intercourse. hydroxyzine HCl 25 mg tablet 25 tab PO QHS Patient Comments: TAKE ONE TABLET BY MOUTH DAILY AT 9PM AT BEDTIME meloxicam 15 mg tablet 15 mg PO DAILY Qty: 20 0RF oxycodone 5 mg tablet 5 mg PO Q6H PRN (Reason: pain) 7 Days Qty: 28 0RF Primary Care Provider: Farhad Luther Referrals: Farhad Luther MD [Primary Care Provider] - 5-7 Days Print Language: Romansh Disposition Disposition: Home, Self Care
--- NOTE | 2024-03-23 08:55 | CT_ITS ---
STUDY: CT ABDOMEN AND PELVIS WITHOUT CONTRAST REASON FOR EXAM: Male, 53 years old. Right flank pain. Known right rib fracture from recent fall.. RADIATION DOSAGE (If Supplied By Facility): CTDIvol = ( 17.35 ) mGy, DLP = ( 960.83 ) mGycm TECHNIQUE: Transaxial images were obtained from the dome of the diaphragm to the symphysis pubis without oral contrast, and without intravenous contrast. Sagittal and coronal images were reconstructed. Individualized dose optimization techniques were used for this CT. COMPARISON: None. FINDINGS: The visualized lung bases are unremarkable. Coronary artery calcification. Normal liver. Normal gallbladder and extrahepatic biliary system. There is a benign calcified granuloma of the spleen. Normal pancreas. Normal bilateral adrenal glands. Normal right kidney. Normal left kidney. There is a small hiatal hernia. Normal small intestine. Normal colon. The appendix is visualized and appears normal. There is scattered atherosclerotic calcification of the abdominal aorta, without a demonstrated aneurysm. Normal inferior vena cava. Normal retroperitoneum. Distended urinary bladder. There are prostatic calcifications. There is a small umbilical hernia containing fat. There are degenerative changes of the visualized lumbar spine. CT/Abdomen/Pelvis without Cont IMPRESSION: No evidence of ureteral obstruction. Distention of the urinary bladder. No acute abnormality is seen. Electronically Signed: Elmer Quintanilla MD at 10:30 EST ,
[2024-03-23 09:12] LABS: Absolute Lymphocyte Count 1.04 X10^3/uL (0.83-4.51); Absolute Neutrophil Count 3.9 X10^3/uL (2.0-7.7); Basophil# 0.04 X10^3/uL; Basophil% 0.7 % (0-1); Eosinophil# 0.14 X10^3/uL; Eosinophils% 2.5 % (0-5); Hematocrit 33.4 % (40-54); Hemoglobin 12.5 g/dL (13.0-16.5); Lymphocyte # 1.04 X10^3/ul (0.83-4.51); Lymphocyte % 18.6 % (19-41); Mean Corp Hgb Conc 37.4 g/dL (32-36); Mean Corpuscular Hgb 35.3 pg (27.0-32.0); Mean Corpuscular Volume 94.4 fL (80-94); Mean Platelet Vol. 10.1 fl (6.2-12.0); Monocyte# 0.48 X10^3/uL; Monocyte% 8.6 % (0-10); NRBC Flagged by Analyzer 0 % (0-5); Neutrophil # 3.87 X10^3/uL (2.7-7.7); Neutrophil % 69.4 % (47-70); Platelet Count 245 K/mm3 (150-450); RBC Distribution Width CV 12.3 % (11.6-14.6); RBC Distribution Width SD 42.8 fl (35.1-43.9); Red Blood Count 3.54 M/mm3 (4.6-6.2); White Blood Count 5.6 K/mm3 (4.4-11.0)
[2024-03-23 09:26] LABS: Anion Gap 11 (5-15); BUN 4 mg/dL (7-18); BUN/Creat Ratio 6.5 RATIO (10-20); Calcium,Total 8.4 mg/dL (8.5-10.1); Chloride 87 mmol/L (98-107); Creatinine, Serum 0.62 mg/dL (0.70-1.30); EST Glomerular Filtration Rate 144 mL/min (>60); Est Glom Filt Rate - Afr Amer 175 mL/min (>60); Estimated Creatinine Clearance 171.23 ml/min; Glucose 121 mg/dL (74-106); Potassium 3.6 mmol/L (3.5-5.1); Sodium Level 125 mmol/L (136-145)
[2024-03-23] MEDS: Ondansetron 4 MG/2 ML Vial IV (09:48)
[2024-03-23] MEDS: 0.9% Normal Saline (1000mL) 1,000 ML 1000 ML IV (09:50)
[2024-03-23] MEDS: Morphine 4 MG/ML Syringe IV (09:50)
[2024-03-23 10:22] VITALS: BP 132/82; PULSE 70; RESP 18; O2SAT 96
[2024-03-23 10:25] LABS: Bacteria 0 SEEN /hpf (None Seen); Mucous, Urine 0 SEEN /hpf (<or=2+); Red Blood Cells-Urine 0 SEEN /hpf (0-5); White Blood Cells 0 SEEN /hpf (0-5)
[2024-03-23 10:35] LABS: Color, Urine Straw (Yellow); Glucose, Dipstick Normal (Normal); Ketone-Dipstick Negative (Negative); Leukocyte Esterase-Dipstick Negative /ul (Negative); Nitrite-Dipstick Negative (Negative); Occult Blood-Urine Negative /ul (Negative); Protein-Dipstick Negative (Negative); Urine Bilirubin Dipstick Negative (Negative); Urine Clarity Clear (Clear); Urine Urobilinogen Normal (Normal)
[2024-03-23 11:00] LABS: Squamous Epithelial Cells - UA 0-5 SEEN /hpf (0-5)
[2024-03-23 12:00] VITALS: BP 130/86; PULSE 76; RESP 16; O2SAT 97
[2024-03-23] MEDS: HYDROmorphone 1 MG/ML Syringe 0.5 MG IV (12:03)
[2024-03-23 12:26] VITALS: BP 141/79; PULSE 69; RESP 18; O2SAT 97
== END 2024-03-23 12:26 | disposition home or self-care (01) ==
PROVIDERS: Emergency Provider Emergency Medicine; PCP Family Medicine; Visit Provider Emergency Medicine
DX: M54.50 Low back pain, unspecified (principal); I10 Essential (primary) hypertension; F17.210 Nicotine dependence, cigarettes, uncomplicated
CPT/HCPCS: 74176; 80048; 81001; 85025; 96361; 96374; 96375; 96376; 99283; J7030; A4216; J2405

== ENCOUNTER → 2024-04-26 | Outpatient (CLI) | payer MEDICARE, SELFPAY ==
[2024-04-26 15:18] LABS: Absolute Lymphocyte Count 1.93 X10^3/uL (0.83-4.51); Basophil# 0.03 X10^3/uL; Basophil% 0.5 % (0-1); Eosinophil# 0.16 X10^3/uL; Eosinophils% 2.4 % (0-5); Hematocrit 40.3 % (40-54); Hemoglobin 14.2 g/dL (13.0-16.5); Lymphocyte # 1.93 X10^3/ul (0.83-4.51); Lymphocyte % 29.1 % (19-41); Mean Corp Hgb Conc 35.2 g/dL (32-36); Mean Corpuscular Hgb 34.7 pg (27.0-32.0); Mean Corpuscular Volume 98.5 fL (80-94); Mean Platelet Vol. 11.3 fl (6.2-12.0); Monocyte# 0.54 X10^3/uL; Monocyte% 8.1 % (0-10); NRBC Flagged by Analyzer 0 % (0-5); Neutrophil # 3.96 X10^3/uL (2.7-7.7); Neutrophil % 59.7 % (47-70); Platelet Count 289 K/mm3 (150-450); RBC Distribution Width CV 11.9 % (11.6-14.6); RBC Distribution Width SD 43.2 fl (35.1-43.9); Red Blood Count 4.09 M/mm3 (4.6-6.2); White Blood Count 6.6 K/mm3 (4.4-11.0)
[2024-04-26 15:53] LABS: ALB/GLOB Ratio 1.1 RATIO (0.9-2.4); AST(SGOT) 85 U/L (15-37); Alanine Aminotransfer ALT/SGPT 65 U/L (16-61); Albumin, Serum 3.6 g/dL (3.2-5.0); Alkaline Phosphatase 130 U/L (45-117); Anion Gap 11 (5-15); BUN 9 mg/dL (7-18); BUN/Creat Ratio 9.4 RATIO (10-20); Calcium,Total 9.5 mg/dL (8.5-10.1); Chloride 93 mmol/L (98-107); Creatinine, Serum 0.95 mg/dL (0.70-1.30); EST Glomerular Filtration Rate 87 mL/min (>60); Est Glom Filt Rate - Afr Amer 106 mL/min (>60); Globulin 3.3 g/dL (2.2-4.2); Glucose 117 mg/dL (74-106); Potassium 3.5 mmol/L (3.5-5.1); Protein, Total 6.9 g/dL (6.4-8.2); Sodium Level 129 mmol/L (136-145)
== END | disposition home or self-care (01) ==
LOC: MFPLAB 11:55
PROVIDERS: PCP Family Medicine; Referring Provider Family Medicine; Visit Provider Family Medicine
DX: R11.0 Nausea (principal)
CPT/HCPCS: 36415; 80053; 85025

== ENCOUNTER → 2024-11-03 | Outpatient (CLI) | payer MEDICARE, SELFPAY ==
--- NOTE | 2024-11-03 09:55 | RAD_ITS ---
PROCEDURE: HIP, UNI W/ PELVIS 2-3 VIEWS 11/03/2024 REASON FOR EXAM: PAIN TECHNIQUE: HIP, UNI W/ PELVIS 2-3 VIEWS COMPARISON: None. FINDINGS: No evidence of acute fracture or dislocation. The bilateral hip joint spaces are maintained. RAD/HIP, UNI W/ Pelvis 2-3 Views IMPRESSION: No acute abnormality. Reading Location: [place] [id number]
--- NOTE | 2024-11-03 09:56 | RAD_ITS ---
PROCEDURE: KNEE 4 OR MORE VIEWS 11/03/2024 REASON FOR EXAM: PAIN TECHNIQUE: KNEE 4 OR MORE VIEWS COMPARISON: 08/02/2018. FINDINGS: No evidence of acute fracture or dislocation. The joint spaces are maintained. No knee joint effusion. RAD/Knee 4 or More Views IMPRESSION: No acute abnormality. Reading Location: [place] [address]
== END | disposition home or self-care (01) ==
LOC: MTRAD 09:54
PROVIDERS: PCP Family Medicine; Referring Provider Family Medicine; Visit Provider Family Medicine
DX: M25.551 Pain in right hip (principal); M25.561 Pain in right knee
CPT/HCPCS: 73502; 73564